=== PATIENT | male | born 1950 | race Caucasian/White ===

== ENCOUNTER → 2017-03-08 | Outpatient (REF) | payer MEDICARE, OTHER ==
[~2017-03-08] MED LIST: ACET65TA OR; ACTO45TA PO; ASCO25TA PO; ASPI81TA83 PO; CELE20TA PO; CLIN300C OR; CRES10TA32 PO; DOCU10CA PO; FERR32TA PO; FLON0.05; GABA-279 PO; GLIM1TAB PO; GLIM2TA PO; GLUC1000 OR; GLUC1000 PO; HYDR25TA6 OR; INSULANT SC; LEVA500T PO; LIPI20TA PO; LISI20TA5 OR; LISI20TA5 PO; Lotrel PO; META28.35 PO; MOME50SP; MULTIVIT PO; NABU500T PO; NEUR100C PO; NEXI40CA PO; NORV5TAB PO; OCEA0.654; OMEP20TA7 PO; PLAV75TA38 PO; ROXI1TAB2 PO; SENO8.6T2 PO; TYLE325T5 PO; VICT18IN SC; ZEST20TA4 PO; celebrex PO; exforge PO
[2017-03-08 11:56] LABS: MEAN CORPUSCULAR HEMOGLOBIN 28.6 pg (27.0-33.0); MEAN CORPUSCULAR HGB CONC 33.2 g/dl (32.0-36.5); MEAN CORPUSCULAR VOLUME 86.2 fl (80.0-96.0); RED CELL DISTRIBUTION WIDTH 13.6 % (11.5-14.5)
[2017-03-08 12:19] LABS: ALBUMIN 3.4 GM/DL (3.2-5.2); ALKALINE PHOSPHATASE 81 U/L (45-117); ALT/SGPT 27 U/L (12-78); ANION GAP 7 MEQ/L (8-16); AST/SGOT 20 U/L (15-37); BILIRUBIN,TOTAL 0.7 MG/DL (0.2-1.0); BLOOD UREA NITROGEN 27 MG/DL (7-18); CALCIUM LEVEL 8.5 MG/DL (8.8-10.2); CARBON DIOXIDE LEVEL 32 MEQ/L (21-32); CHLORIDE LEVEL 103 MEQ/L (98-107); CHOLESTEROL LEVEL 130 MG/DL (<200); CREATININE FOR GFR 1.13 MG/DL (0.70-1.30); GLOMERULAR FILTRATION RATE > 60.0 (>49); GLUCOSE, FASTING 142 MG/DL (80-110); POTASSIUM SERUM 4.2 MEQ/L (3.5-5.1); SODIUM LEVEL 142 MEQ/L (136-145); TOTAL PROTEIN 6.8 GM/DL (6.4-8.2); TRIGLYCERIDES LEVEL 105 MG/DL (<150)
== END ==
LOC: M SFHCPLAZ 08:49
PROVIDERS: ATTEND Internal Medicine
DX: E11.9 Type 2 diabetes mellitus without complications (principal); E78.00 Pure hypercholesterolemia, unspecified; Z79.899 Other long term (current) drug therapy

== ENCOUNTER 2017-05-08 02:54 | Emergency (ER) | payer MEDICARE, OTHER ==
[~2017-05-08] VITALS: Ht 177.8 cm; Wt 123.6 kg
[~2017-05-08 02:54] MED LIST changes: +PLAV1TAB2 PO; -PLAV75TA38 PO; -SENO8.6T2 PO; +SENO8.6T5 PO
[2017-05-08 03:00] VITALS: BP 159/77
[2017-05-08] MEDS ORDERED: NEXI40CA PO (03:16)
[2017-05-08] MEDS ORDERED: ZITHTAB PO (03:43)
[2017-05-08] MEDS ORDERED: AZITHROMYCIN 250 MG TAB PO ONE (03:45)
[2017-05-08] MEDS ORDERED: TETANUS/DIPHTHERIA TOX ADSORB ADULT 0.5ML SYR/VIAL (90714) IM ONE (04:00)
[2017-05-08] MEDS ORDERED: NORCO, ANEXSIA 5/325MG TABLET (HYDROcodone/ACETAMINOPHEN) PO ONE (04:15)
== END 2017-05-08 04:23 | disposition home or self-care (01) ==
LOC: M ED 02:54
DX: S80.812A Abrasion, left lower leg, initial encounter (principal); W10.9XXA Fall (on) (from) unspecified stairs and steps, initial encounter; Y92.018 Other place in single-family (private) house as the place of occurrence of the external cause; E11.9 Type 2 diabetes mellitus without complications; I10 Essential (primary) hypertension; K21.9 Gastro-esophageal reflux disease without esophagitis; Y99.9 Unspecified external cause status; Y93.9 Activity, unspecified; Z79.4 Long term (current) use of insulin; Z79.84 Long term (current) use of oral hypoglycemic drugs; Z79.899 Other long term (current) drug therapy; Z88.0 Allergy status to penicillin; Z91.048 Other nonmedicinal substance allergy status

== ENCOUNTER → 2017-06-02 | Outpatient (CLI) | payer MEDICARE, OTHER ==
[~2017-06-02] MED LIST changes: +ZITHTAB PO
--- NOTE | 2017-06-02 10:33 | REP ---
LEFT LOWER EXTREMITY DUPLEX DOPPLER ARTERIAL ULTRASOUND: Real-time ultrasound evaluation and duplex Doppler interrogation of the left lower extremity arterial system is performed. Scattered atherosclerotic plaquing is seen. Brachial: 100 Dorsal pedis: 100 Posterior tibial artery: No flow KENROY: 0.8 PEAK SYSTOLIC VELOCITY AND PHASICITY: Common femoral artery 96.9 cm/s Triphasic profunda 47.4 Biphasic SFA proximal 57.0 Triphasic SFA mid 78.7 Triphasic SFA distal 58.7 Triphasic popliteal 52.1 Triphasic anterior tibial artery proximal 79.4 Monophasic tibioperoneal trunk 36.4 Biphasic posterior tibial artery proximal 58.7 Monophasic posterior tibial artery distal No flow Anterior tibial artery distal 84.9 monophasic Distal posterior tibial artery appears occluded. Distal anterior tibial artery demonstrates a low resistance waveform suggesting a more proximal stenosis with reconstitution. Signed by Bello Shaver MD 06/03/2017 05:48 P
== END ==
LOC: M RAD 07:29
PROVIDERS: ATTEND Surgery Vascular Surgery
DX: R09.89 Other specified symptoms and signs involving the circulatory and respiratory systems (principal)

== ENCOUNTER → 2017-07-30 | Outpatient (REF) | payer MEDICARE, OTHER ==
[2017-07-30 12:22] LABS: ALBUMIN 3.5 GM/DL (3.2-5.2); ALBUMIN/GLOBULIN RATIO 1.06 (1.00-1.93); BILIRUBIN,TOTAL 0.8 MG/DL (0.2-1.0); CALCIUM LEVEL 8.5 MG/DL (8.8-10.2); CREATININE FOR GFR 1.68 MG/DL (0.70-1.30); GLOMERULAR FILTRATION RATE 43.3 (>49); POTASSIUM SERUM 3.8 MEQ/L (3.5-5.1); TOTAL PROTEIN 6.8 GM/DL (6.4-8.2)
== END ==
LOC: M SFHCPLAZ 09:19
PROVIDERS: ATTEND Internal Medicine
DX: E11.9 Type 2 diabetes mellitus without complications (principal)

== ENCOUNTER → 2018-02-28 | Outpatient (REF) | payer MEDICARE, OTHER ==
[2018-02-28 18:57] LABS: HEMATOCRIT 38.7 % (42.0-52.0); MEAN CORPUSCULAR HEMOGLOBIN 29.4 pg (27.0-33.0); MEAN CORPUSCULAR HGB CONC 33.6 g/dl (32.0-36.5); MEAN CORPUSCULAR VOLUME 87.6 fl (80.0-96.0); PLATELET COUNT, AUTOMATED 286 10^3/uL (150-450); RED BLOOD COUNT 4.42 10^6/uL (4.30-6.10); RED CELL DISTRIBUTION WIDTH 13.7 % (11.5-14.5); WHITE BLOOD COUNT 19.7 10^3/uL (4.0-10.0)
[2018-02-28 19:36] LABS: ALBUMIN 3.7 GM/DL (3.2-5.2); ALKALINE PHOSPHATASE 95 U/L (45-117); ALT/SGPT 42 U/L (12-78); ANION GAP 9 MEQ/L (8-16); AST/SGOT 25 U/L (7-37); BLOOD UREA NITROGEN 28 MG/DL (7-18); CALCIUM LEVEL 8.6 MG/DL (8.8-10.2); CARBON DIOXIDE LEVEL 29 MEQ/L (21-32); CHLORIDE LEVEL 102 MEQ/L (98-107); CHOLESTEROL LEVEL 185 MG/DL (<200); CHOLESTEROL RISK RATIO 4.404 (<5); CREATININE FOR GFR 1.68 MG/DL (0.70-1.30); GLOMERULAR FILTRATION RATE 43.2 (>42); GLUCOSE, FASTING 191 MG/DL (70-100); HDL CHOLESTEROL 42 MG/DL (>40); LDL CHOLESTEROL 115.4 MG/DL (<100); NON-HDL-C 143 MG/DL; POTASSIUM SERUM 4.5 MEQ/L (3.5-5.1); SODIUM LEVEL 140 MEQ/L (136-145); TOTAL PROTEIN 7.4 GM/DL (6.4-8.2); TRIGLYCERIDES LEVEL 138 MG/DL (<150)
[2018-02-28 19:47] LABS: ESTIMATED AVERAGE GLUCOSE 169 MG/DL (60-110); HEMOGLOBIN A1c 7.5 %
== END ==
LOC: M SFHCADAM 11:45
DX: D64.9 Anemia, unspecified (principal); E11.9 Type 2 diabetes mellitus without complications; E78.00 Pure hypercholesterolemia, unspecified; R94.6 Abnormal results of thyroid function studies
CPT/HCPCS: 84443

== ENCOUNTER → 2018-03-08 | Outpatient (CLI) | payer MEDICARE, OTHER | LOC: M RAD 08:04 | DX: I70.262 Atherosclerosis of native arteries of extremities with gangrene, left leg (principal) | CPT/HCPCS: 93923 ==

== ENCOUNTER → 2018-03-09 | Outpatient (REF) | payer MEDICARE, OTHER ==
[2018-03-09 12:54] LABS: BASO % 0.3 % (0.0-1.0); EOS # 0.3 10^3/uL (0.0-0.50); EOS % 2.9 % (0.0-3.0); HEMATOCRIT 38.7 % (42.0-52.0); HEMOGLOBIN 12.8 g/dl (13.5-17.5); IMMATURE GRANULOCYTE % 0.6 % (0-3.0); LYMPH # 2.2 10^3/uL (1.5-4.5); MEAN CORPUSCULAR HEMOGLOBIN 28.7 pg (27.0-33.0); MEAN CORPUSCULAR HGB CONC 33.1 g/dl (32.0-36.5); MEAN CORPUSCULAR VOLUME 86.8 fl (80.0-96.0); MONO # 0.7 10^3/uL (0.0-0.8); MONO % 7.7 % (0.0-5.0); NEUTROPHILS # 5.9 10^3/uL (1.8-7.7); NEUTROPHILS % 64.5 % (36.0-66.0); PLATELET COUNT, AUTOMATED 286 10^3/uL (150-450); RED BLOOD COUNT 4.46 10^6/uL (4.30-6.10); RED CELL DISTRIBUTION WIDTH 13.5 % (11.5-14.5); WHITE BLOOD COUNT 9.1 10^3/uL (4.0-10.0)
== END ==
LOC: M SFHCADAM 09:24
DX: D72.828 Other elevated white blood cell count (principal)
CPT/HCPCS: 85025

== ENCOUNTER → 2018-03-22 | Outpatient (CLI) | payer MEDICARE, OTHER | LOC: M RAD 13:11 | DX: R94.2 Abnormal results of pulmonary function studies (principal) | CPT/HCPCS: 71046 ==

== ENCOUNTER → 2018-03-23 | Outpatient (CLI) | payer MEDICARE, OTHER | LOC: M PLARAD 10:22 | DX: R91.1 Solitary pulmonary nodule (principal) | CPT/HCPCS: 78815 ==

== ENCOUNTER → 2018-05-25 | Outpatient (CLI) | payer MEDICARE, OTHER | LOC: M SLEEP 19:44 | DX: G47.33 Obstructive sleep apnea (adult) (pediatric) (principal) | CPT/HCPCS: 95811 ==

== ENCOUNTER → 2018-06-27 | Outpatient (REF) | payer MEDICARE, OTHER ==
[2018-06-27 13:46] LABS: BASO % 0.2 % (0.0-1.0); EOS # 0.3 10^3/uL (0.0-0.50); EOS % 3.2 % (0.0-3.0); HEMATOCRIT 37.5 % (42.0-52.0); HEMOGLOBIN 12.5 g/dl (13.5-17.5); IMMATURE GRANULOCYTE % 0.4 % (0-3.0); LYMPH # 2.1 10^3/uL (1.5-4.5); LYMPH % 23.1 % (24.0-44.0); MEAN CORPUSCULAR HEMOGLOBIN 29.8 pg (27.0-33.0); MEAN CORPUSCULAR HGB CONC 33.3 g/dl (32.0-36.5); MEAN CORPUSCULAR VOLUME 89.5 fl (80.0-96.0); MONO # 0.7 10^3/uL (0.0-0.8); MONO % 7.9 % (0.0-5.0); NEUTROPHILS # 5.9 10^3/uL (1.8-7.7); NEUTROPHILS % 65.2 % (36.0-66.0); PLATELET COUNT, AUTOMATED 257 10^3/uL (150-450); RED BLOOD COUNT 4.19 10^6/uL (4.30-6.10)
[2018-06-27 13:59] LABS: ALBUMIN 3.7 GM/DL (3.2-5.2); ALBUMIN/GLOBULIN RATIO 1.03 (1.00-1.93); ALKALINE PHOSPHATASE 72 U/L (45-117); ALT/SGPT 34 U/L (12-78); ANION GAP 10 MEQ/L (8-16); AST/SGOT 23 U/L (7-37); BILIRUBIN,TOTAL 0.7 MG/DL (0.2-1.0); BLOOD UREA NITROGEN 43 MG/DL (7-18); CALCIUM LEVEL 8.5 MG/DL (8.8-10.2); CARBON DIOXIDE LEVEL 26 MEQ/L (21-32); CHLORIDE LEVEL 105 MEQ/L (98-107); CHOLESTEROL LEVEL 126 MG/DL (<200); CHOLESTEROL RISK RATIO 3.073 (<5); CREATININE FOR GFR 1.58 MG/DL (0.70-1.30); GLOMERULAR FILTRATION RATE 46.4 (>42); GLUCOSE, FASTING 61 MG/DL (70-100); HDL CHOLESTEROL 41 MG/DL (>40); LDL CHOLESTEROL 63.6 MG/DL (<100); MAGNESIUM LEVEL 1.9 MG/DL (1.8-2.4); NON-HDL-C 85 MG/DL; POTASSIUM SERUM 4.3 MEQ/L (3.5-5.1); SODIUM LEVEL 141 MEQ/L (136-145); TOTAL PROTEIN 7.3 GM/DL (6.4-8.2); TRIGLYCERIDES LEVEL 107 MG/DL (<150)
[2018-06-27 14:39] LABS: CREATININE, URINE 41.5 MG/DL; MAU/CREAT RATIO 387.9 MCG/MG (0.0-30.0)
[2018-06-27 14:41] LABS: ESTIMATED AVERAGE GLUCOSE 180 MG/DL (60-110); HEMOGLOBIN A1c 7.9 %
== END ==
LOC: M SFHCPLAZ 11:43
DX: D72.828 Other elevated white blood cell count (principal); I10 Essential (primary) hypertension; E11.9 Type 2 diabetes mellitus without complications
CPT/HCPCS: 83735

== ENCOUNTER → 2018-08-19 | Outpatient (CLI) | payer MEDICARE, OTHER | LOC: M RAD 11:00 | DX: R91.1 Solitary pulmonary nodule (principal) | CPT/HCPCS: 71250 ==

== ENCOUNTER → 2018-08-24 | Outpatient (CLI) | payer MEDICARE, OTHER | LOC: M RAD 12:36 | DX: I70.202 Unspecified atherosclerosis of native arteries of extremities, left leg (principal); I74.3 Embolism and thrombosis of arteries of the lower extremities | CPT/HCPCS: 93926 ==

== ENCOUNTER → 2019-03-07 | Outpatient (CLI) | payer MEDICARE, OTHER ==
[~2019-03-07] MED LIST changes: -ASCO25TA PO; +CRES10TA PO; -CRES10TA32 PO; +GABA-1171 PO; -GABA-279 PO; -GLIM2TA PO; +GLIM2TAB29 PO; +VITA1TAB23 PO
--- NOTE | 2019-03-07 20:23 | REP ---
LEFT LOWER EXTREMITY DUPLEX DOPPLER ARTERIAL ULTRASOUND: Real-time ultrasound evaluation and duplex Doppler interrogation of the left lower extremity arterial system is performed. Severe atherosclerotic plaquing is seen throughout the arteries of the left lower extremity. Areas of stenoses are seen in the distal anterior and distal posterior tibial arteries. Triphasic waveforms are seen through the tibial peroneal trunk and into the proximal posterior tibial artery, with biphasic waveform in the proximal anterior tibial artery. There are monophasic waveforms in the distal anterior and posterior tibial arteries. LEFT Peak systolic velocity Common femoral artery 68.8 cm/s Profunda 52.7 cm/s Proximal SFA 69.2 cm/s Mid SFA 81.1 cm/s Distal SFA 54.5 cm/s Popliteal 32.5 cm/s Proximal ALIRIO 26.5 cm/s Tibial peroneal trunk 33.8 cm/s Proximal DIRECTOR INTEGRATED 59.5 cm/s Distal DIRECTOR INTEGRATED 8.9 cm/s Distal ALIRIO 95.4 cm/s IMPRESSION: Diffuse severe atherosclerotic plaquing with severe stenosis of the distal anterior and posterior tibial arteries. Electronically Signed by Bello Shaver MD 03/08/2019 04:52 P
== END ==
LOC: M RAD 09:31
PROVIDERS: ATTEND Surgery Vascular Surgery
DX: I70.212 Atherosclerosis of native arteries of extremities with intermittent claudication, left leg (principal)

== ENCOUNTER → 2019-03-13 | Outpatient (REF) | payer MEDICARE, OTHER ==
[2019-03-13 12:06] LABS: HEMATOCRIT 37.3 % (42.0-52.0); HEMOGLOBIN 12.8 g/dl (13.5-17.5); MEAN CORPUSCULAR HGB CONC 34.3 g/dl (32.0-36.5); MEAN CORPUSCULAR VOLUME 87.6 fl (80.0-96.0); PLATELET COUNT, AUTOMATED 251 10^3/uL (150-450); RED BLOOD COUNT 4.26 10^6/uL (4.30-6.10)
[2019-03-13 12:28] LABS: HEMOGLOBIN A1c 8.5 %
[2019-03-13 12:47] LABS: ALBUMIN 3.5 GM/DL (3.2-5.2); BILIRUBIN,TOTAL 1.6 MG/DL (0.2-1.0); CALCIUM LEVEL 8.5 MG/DL (8.8-10.2); CHOLESTEROL RISK RATIO 2.935 (<5); CREATININE FOR GFR 1.37 MG/DL (0.70-1.30); GLOMERULAR FILTRATION RATE 54.5 (>42); MAGNESIUM LEVEL 1.5 MG/DL (1.8-2.4); POTASSIUM SERUM 3.9 MEQ/L (3.5-5.1); PTH INTACT 102.9 PG/ML (18.5-88.0); TOTAL PROTEIN 7.3 GM/DL (6.4-8.2)
== END ==
LOC: M SFHCPLAZ 10:05
PROVIDERS: ATTEND Internal Medicine
DX: D64.9 Anemia, unspecified (principal); I12.9 Hypertensive chronic kidney disease with stage 1 through stage 4 chronic kidney disease, or unspecified chronic kidney disease; E11.9 Type 2 diabetes mellitus without complications; E78.00 Pure hypercholesterolemia, unspecified; N18.3 Chronic kidney disease, stage 3 (moderate)

== ENCOUNTER → 2019-07-18 | Outpatient (CLI) | payer MEDICARE, OTHER ==
--- NOTE | 2019-07-18 11:43 | REP ---
CT of the chest without contrast Clinical indication: Solitary pulmonary nodule. Comparison: CT chest of 08/19/2018. Technique: Axial CT of the chest was performed from the thoracic inlet to the upper abdomen. No intravenous contrast was administered. Coronal and sagittal reformatted images as well as axial lung reformatted and coronal MIP images were provided. Findings: The upper airway is patent. The 9 mm right apical nodule is unchanged (image 14). There is no new suspicious pulmonary nodule. There is no pleural effusion. There is atherosclerotic calcification of the thoracic aorta and coronary arteries. The heart size is normal. No pericardial effusion. There is is similar appearance of nonenlarged mediastinal lymph nodes which measure up to 9 mm in short axis dimension. There is no axillary lymphadenopathy. The partially imaged thyroid is enlarged but unchanged. Within the upper abdomen, note is made of prior cholecystectomy. ACDF hardware is partially imaged. No suspicious focal osseous lesion. Impression: Unchanged 9 mm right apical nodule. No new suspicious pulmonary nodule. Electronically Signed by Shahid Yeboah MD 07/18/2019 11:35 A
== END ==
LOC: M RAD 10:24
PROVIDERS: ATTEND Internal Medicine Pulmonary Disease
DX: R91.1 Solitary pulmonary nodule (principal)

== ENCOUNTER → 2019-08-03 | Outpatient (REF) | payer MEDICARE, OTHER ==
[2019-08-03 13:43] LABS: HEMATOCRIT 39.2 % (42.0-52.0); MEAN CORPUSCULAR HEMOGLOBIN 29.3 pg (27.0-33.0); MEAN CORPUSCULAR HGB CONC 33.2 g/dl (32.0-36.5); MEAN CORPUSCULAR VOLUME 88.3 fl (80.0-96.0); PLATELET COUNT, AUTOMATED 293 10^3/uL (150-450); RED BLOOD COUNT 4.44 10^6/uL (4.30-6.10); WHITE BLOOD COUNT 8.7 10^3/uL (4.0-10.0)
[2019-08-03 14:19] LABS: ALBUMIN 3.6 GM/DL (3.2-5.2); ALT/SGPT 21 U/L (12-78); BILIRUBIN,TOTAL 1.4 MG/DL (0.2-1.0); BLOOD UREA NITROGEN 28 MG/DL (7-18); CARBON DIOXIDE LEVEL 30 MEQ/L (21-32); CHLORIDE LEVEL 104 MEQ/L (98-107); CREATININE FOR GFR 1.25 MG/DL (0.70-1.30); GLOMERULAR FILTRATION RATE > 60.0 (>42); GLUCOSE, FASTING 101 MG/DL (70-100); MAGNESIUM LEVEL 1.5 MG/DL (1.8-2.4); POTASSIUM SERUM 4.3 MEQ/L (3.5-5.1); PTH INTACT 134.2 PG/ML (18.5-88.0); SODIUM LEVEL 140 MEQ/L (136-145)
[2019-08-03 14:45] LABS: CREATININE, URINE 34.2 MG/DL; MAU/CREAT RATIO 1552.6 MCG/MG (0.0-30.0)
== END ==
LOC: M SFHCPLAZ 09:58
PROVIDERS: ATTEND Internal Medicine
DX: D64.9 Anemia, unspecified (principal); I12.9 Hypertensive chronic kidney disease with stage 1 through stage 4 chronic kidney disease, or unspecified chronic kidney disease; E11.9 Type 2 diabetes mellitus without complications; N18.3 Chronic kidney disease, stage 3 (moderate); R94.6 Abnormal results of thyroid function studies

== ENCOUNTER 2020-03-28 08:56 | Emergency (ER) | payer MEDICARE, OTHER ==
[~2020-03-28] VITALS: Ht 180.3 cm; Wt 119.1 kg
[2020-03-28] MEDS ORDERED: LANTINJ4 (09:05)
[2020-03-28] MEDS ORDERED: VICT18IN2 (09:05)
[2020-03-28] MEDS ORDERED: BACL1TAB8 (09:05)
[2020-03-28 09:41] LABS: HEMATOCRIT 37.2 % (42.0-52.0); HEMOGLOBIN 12.5 g/dl (13.5-17.5); MEAN CORPUSCULAR HEMOGLOBIN 30.1 pg (27.0-33.0); MEAN CORPUSCULAR HGB CONC 33.6 g/dl (32.0-36.5); MEAN CORPUSCULAR VOLUME 89.6 fl (80.0-96.0); PLATELET COUNT, AUTOMATED 233 10^3/uL (150-450); RED BLOOD COUNT 4.15 10^6/uL (4.30-6.10); WHITE BLOOD COUNT 8.5 10^3/uL (4.0-10.0)
[2020-03-28 09:58] LABS: ERYTHROCYTE SEDIMENTATION RATE 51 mm/hr (0-20)
--- NOTE | 2020-03-28 10:16 | REP ---
Left hand series: Four views. History: Swelling and tenderness after a fall. Findings: Four views of the left hand demonstrate fairly extensive arterial vascular atherosclerotic calcification into the digital arteries. There is osteoarthritic spurring at the IP joint of the thumb, the DIP joint of the index finger, and at the DIP joint of the small finger. There is minimal degenerative widening of the navicular lunate interval. 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 No fracture or subluxation is seen. Impression: No fracture noted. Osteoarthritic changes. 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 Electronically Signed by Jagdeep Mcnally MD 03/28/2020 11:25 A
[2020-03-28 10:23] VITALS: BP 124/67
[2020-03-28] MEDS ORDERED: DOXY-350 PO (10:25)
--- NOTE | 2020-03-28 10:26 | REP ---
LEFT WRIST SERIES: Four views. HISTORY: Swelling and tenderness after a fall. FINDINGS: Extensive vascular calcification is noted. Incidental lunotriquetral carpal coalition is seen. There is minimal degenerative widening of the navicular lunate interval. There is mild osteoarthritis at the navicular multangular articulation and at the 1st metacarpocarpal articulation. There is some dorsal carpal swelling. No fractures seen. IMPRESSION: No fracture is noted. Lunotriquetral carpal coalition. Extensive vascular calcification. Osteoarthritic changes. Electronically Signed by Jagdeep Mcnally MD 03/28/2020 11:25 A
== END 2020-03-28 10:45 | disposition home or self-care (01) ==
LOC: M ED 08:56
DX: S80.221A Blister (nonthermal), right knee, initial encounter (principal); L03.114 Cellulitis of left upper limb; W01.198A Fall on same level from slipping, tripping and stumbling with subsequent striking against other object, initial encounter; Y92.093 Driveway of other non-institutional residence as the place of occurrence of the external cause; Z89.511 Acquired absence of right leg below knee; E11.9 Type 2 diabetes mellitus without complications; I10 Essential (primary) hypertension; E78.5 Hyperlipidemia, unspecified; K21.9 Gastro-esophageal reflux disease without esophagitis; F41.9 Anxiety disorder, unspecified; F32.9 Major depressive disorder, single episode, unspecified; Z88.0 Allergy status to penicillin; Z91.048 Other nonmedicinal substance allergy status; Z79.899 Other long term (current) drug therapy; Z79.4 Long term (current) use of insulin; Z79.82 Long term (current) use of aspirin; Z79.02 Long term (current) use of antithrombotics/antiplatelets

== ENCOUNTER → 2020-04-09 | Outpatient (REF) | payer MEDICARE, OTHER ==
[~2020-04-09] MED LIST changes: +BACL1TAB8; +DOXY-350 PO; +LANTINJ4; +VICT18IN2
[2020-04-09 16:14] LABS: HEMATOCRIT 39.3 % (42.0-52.0); HEMOGLOBIN 13.1 g/dl (13.5-17.5); MEAN CORPUSCULAR HEMOGLOBIN 29.9 pg (27.0-33.0); MEAN CORPUSCULAR HGB CONC 33.3 g/dl (32.0-36.5); MEAN CORPUSCULAR VOLUME 89.7 fl (80.0-96.0); PLATELET COUNT, AUTOMATED 280 10^3/uL (150-450); RED BLOOD COUNT 4.38 10^6/uL (4.30-6.10); WHITE BLOOD COUNT 8.2 10^3/uL (4.0-10.0)
[2020-04-09 16:39] LABS: HEMOGLOBIN A1c 8.7 %
[2020-04-09 16:53] LABS: ALBUMIN 3.7 GM/DL (3.2-5.2); BILIRUBIN,TOTAL 1.5 MG/DL (0.2-1.0); CALCIUM LEVEL 8.8 MG/DL (8.8-10.2); CHOLESTEROL RISK RATIO 4.378 (<5); CREATININE FOR GFR 1.36 MG/DL (0.70-1.30); GLOMERULAR FILTRATION RATE 54.8 (>42); MAGNESIUM LEVEL 1.4 MG/DL (1.8-2.4); POTASSIUM SERUM 4.9 MEQ/L (3.5-5.1); THYROID STIMULATING HORMONE 4.65 uIU/ML (0.358-3.740); TOTAL PROTEIN 7.4 GM/DL (6.4-8.2)
[2020-04-09 16:58] LABS: PTH INTACT 134.4 PG/ML (18.5-88.0)
[2020-04-09 17:23] LABS: CREATININE, URINE 45.9 MG/DL; MAU/CREAT RATIO 1882.3 MCG/MG (0.0-30.0)
== END ==
LOC: M SFHCPLAZ 14:13
PROVIDERS: ATTEND Internal Medicine
DX: D64.9 Anemia, unspecified (principal); I12.9 Hypertensive chronic kidney disease with stage 1 through stage 4 chronic kidney disease, or unspecified chronic kidney disease; E11.9 Type 2 diabetes mellitus without complications; E78.00 Pure hypercholesterolemia, unspecified; N18.3 Chronic kidney disease, stage 3 (moderate); R94.6 Abnormal results of thyroid function studies
CPT/HCPCS: 36415; 80053; 80061; 82043; 83036; 83735; 83970; 84443; 85027; G0463

== ENCOUNTER → 2020-04-29 | Outpatient (CLI) | payer MEDICARE, OTHER ==
--- NOTE | 2020-04-30 02:51 | REP ---
REASON: Claudication. LEFT SIDE ONLY: Left ankle-brachial index not obtainable. ARTERY PEAK SYSTOLIC VELOCITY PHASICITY HOSIERY PAIRER 83.6 cm/s Triphasic Profunda 64.2 cm/s Triphasic SFA proximal 69.9 cm/s Triphasic SFA mid 78.2 cm/s Triphasic SFA distal 49.2 cm/s Triphasic Popliteal 27.7 cm/s Triphasic ALIRIO proximal 219.4 cm/s Triphasic Tibioperoneal trunk 49.5 cm/s Triphasic BUSINESS RELATIONS MANAGER proximal Occluded BUSINESS RELATIONS MANAGER distal 25.0 cm/s Monophasic ALIRIO distal 23.1 cm/s Monophasic Severe plaque formation is seen in the proximal anterior tibial artery. No flow is seen in the proximal BUSINESS RELATIONS MANAGER. Areas of the distal BUSINESS RELATIONS MANAGER appear possibly revascularized. The anterior tibial artery was seen to be heavily calcified at the level of the ankle. Electronically Signed by Wayne Christy DO 04/30/2020 10:23 A
== END ==
LOC: M RAD 15:01
PROVIDERS: ATTEND Physician Assistant
DX: I70.212 Atherosclerosis of native arteries of extremities with intermittent claudication, left leg (principal)

== ENCOUNTER 2020-05-15 11:02 | Inpatient (IN) | payer MEDICARE, OTHER ==
[~2020-05-15] VITALS: Ht 180.3 cm; Wt 114.0 kg
[~2020-05-15 11:02] MED LIST changes: -BACL1TAB8; +BACL1TAB8 PO
[2020-05-15 11:51] LABS: BASO % 0.3 % (0.0-1.0); EOS # 0.2 10^3/uL (0.0-0.5); EOS % 2.4 % (0.0-3.0); HEMATOCRIT 36.1 % (42.0-52.0); HEMOGLOBIN 11.9 g/dl (13.5-17.5); LYMPH # 1.6 10^3/uL (1.5-5.0); LYMPH % 18.1 % (24.0-44.0); MEAN CORPUSCULAR HEMOGLOBIN 30.3 pg (27.0-33.0); MEAN CORPUSCULAR VOLUME 91.9 fl (80.0-96.0); MONO # 0.6 10^3/uL (0.0-0.8); MONO % 6.4 % (0.0-5.0); NEUTROPHILS # 6.3 10^3/uL (1.5-8.5); NEUTROPHILS % 72.5 % (36.0-66.0); PLATELET COUNT, AUTOMATED 286 10^3/uL (150-450); RED BLOOD COUNT 3.93 10^6/uL (4.30-6.10); WHITE BLOOD COUNT 8.7 10^3/uL (4.0-10.0)
[2020-05-15] MEDS ORDERED: NS 1,000 ML IV ONE ×2 (12:30→17:00)
[2020-05-15] MEDS ORDERED: INSULANT SC (13:28)
[2020-05-15] MEDS ORDERED: AMLO10TA5 PO (13:28)
[2020-05-15] MEDS ORDERED: CELE20TA PO (13:28)
[2020-05-15] MEDS ORDERED: HYDR12.55 PO (13:28)
[2020-05-15] MEDS ORDERED: FURO40TA2 PO (13:28)
[2020-05-15] MEDS ORDERED: GABA-843 PO ×2 (13:28)
[2020-05-15] MEDS ORDERED: LOSA100T50 PO (13:28)
[2020-05-15] MEDS ORDERED: ACET-683 PO (13:28)
[2020-05-15] MEDS ORDERED: ASPI81TA26 PO (13:28)
[2020-05-15] MEDS ORDERED: GLIM4TAB5 PO (13:28)
[2020-05-15] MEDS ORDERED: XARE20TA PO (13:28)
[2020-05-15] MEDS ORDERED: METF750T36 PO ×2 (13:28)
--- NOTE | 2020-05-15 14:49 | REP ---
REASON: Right-sided tenderness. PRIORS: None. A few subsegmental atelectatic changes are seen in the right lung base. There is bilateral perirenal stranding, left greater than right. There is a 4 mm size nonobstructing right nephrolith. There is no right-sided hydronephrosis or hydroureter. There is slight left hydronephrosis and hydroureter. The left posterior urinary bladder wall is irregular and appear asymmetrically thickened at the level of the trigone. There is a 2 mm sized nonobstructing left nephrolith. Limited evaluation of the solid intra-abdominal organs show no gross abnormalities. Limited evaluation of the pancreas and adrenal glands show no gross abnormalities. Limited evaluation of the abdominal aorta and para-aortic regions show no gross abnormalities. There is no free fluid or free air in the abdomen or pelvis. Bone window technique through the examination shows degenerative and postoperative changes. Limited evaluation of the bowel loops and their mesenteries show no gross abnormalities. IMPRESSION: 1. Mild left-sided hydronephrosis and hydroureter as described above and possibly secondary to a urinary bladder mass as described above. Urological consultation is suggested. 2. Bilateral nonobstructing nephroliths. 3. Other findings as described above. Electronically Signed by Wayne Christy DO 05/15/2020 05:21 P
[2020-05-15] MEDS ORDERED: FLUTICASONE PROP 0.05% NASAL SPRAY 16 GM (FLONASE) PRN (17:00)
[2020-05-15] MEDS ORDERED: BACLOFEN 10 MG TAB PO PRN (17:00)
[2020-05-15] MEDS ORDERED: GLUCAGON INJ 1MG VIAL SC PRN (17:00)
[2020-05-15] MEDS ORDERED: DEXTROSE 50% 50 ML SYRINGE IV PRN (17:00)
[2020-05-15] MEDS ORDERED: GLUCOSE 4GM CHEW TABLET PO PRN (17:00)
[2020-05-15] MEDS ORDERED: ACETAMINOPHEN 500 MG TAB PO PRN (17:00)
[2020-05-15] MEDS: HumaLOG INSULIN (NovoLOG) PER UNIT SC SCH (17:56)
[2020-05-15] MEDS ORDERED: cefTRIAXone SOD 2 GM in D5W MINI-BAG PLUS 50 ML IV SCH (18:00)
--- NOTE | 2020-05-15 18:23 | HPE ---
DATE OF ADMISSION: 05/15/2020 CHIEF COMPLAINT: Dark urine. HISTORY OF PRESENT ILLNESS: This is a 70-year-old male with history of paralyzed right hemidiaphragm, cervical spine surgery, diabetes with retinopathy status post photocoagulation, obstructive sleep apnea on chronic continuous positive airway pressure (CPAP), hypertension, hyperlipidemia, bilateral carpal tunnel, testalgia, osteoarthritis, restless legs, abnormal thyroid-stimulating hormone (TSH), peripheral vascular disease status post [id number] cross femoral bypass and angioplasty of right leg with right [id number] amputation, presents to the emergency room with acute onset of dark urine. The patient had hematuria yesterday afternoon in the late afternoon twice. He showed his . His said "we should have that looked at." The patient denies any dizziness, lightheadedness, shortness of breath, chest pain, pressure or tightness, palpitations. No fever, chills, nausea, vomiting, diarrhea, or abdominal pain. The patient said he fell about two weeks ago and had some pain on his right side. He thought it would go away. It is worse in the morning when he gets up from the chair. No nonsteroidal antiinflammatory drug (NSAID) use for this pain and he has just pushed through the pain without taking medication. He denies any dysuria, urgency, frequency. He usually urinates 3-4 times a day and then once at night. The patient presented to the emergency room (ER) for further evaluation and was found to have some anemia with hemoglobin of [address] abdomen and pelvis showed a large bladder mass with mild left-sided hydronephrosis. Urology consultation recommended. Hospitalist was called to admit. The patient otherwise denies any changes in weight, appetite, depression, insomnia, dysuria, urgency, frequency, polyphagia, or polydipsia. Denies any nausea, vomiting, diarrhea, upper or lower extremity weakness. All other systems negative. PAST MEDICAL HISTORY: 1. Diabetes. 2. Hypertension. 3. Hypercholesterolemia. 4. 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 5. Retinopathy with photocoagulation. 6. Obstructive sleep apnea (CARLOS), on CPAP. 7. Testalgia. 8. Bilateral carpal tunnel. 9. Osteoarthritis. 10. Allergic rhinitis. 11. Abnormal thyroid-stimulating hormone (TSH). 12. Restless leg. 13. Anemia. 14. Peripheral vascular disease. 15. Right below-knee amputation (BKA). 16. Dyspnea on exertion. 17. Abnormal CT. ALLERGIES: PENICILLIN causing rash, CODEINE nausea and vomiting, TAPE ADHESIVE rash. PAST SURGICAL HISTORY: 1. Right below-knee amputation (BKA) 2014. 2. Cholecystectomy 1993. 3. Circumcision 1998. 4. Arthroscopy, left knee January 2000. 5. Lumbar laminectomy May 2013. 6. Cervical spine surgery with right-sided hemidiaphragm paralysis 2013. 7. Polypectomy 2013. 8. Hamu-ed-[id number] cross femoral bypass and angioplasty of right leg 2014 at [facility] in [place]. 9. Right carpal tunnel release 2017. 10. Colonoscopy with polypectomy 2019. HOME MEDICATIONS: - Lasix 40 daily - glimepiride 4 daily - hydrochlorothiazide 12.5 daily - losartan 100 daily - metformin 750 at bedtime - Victoza 1.8 mg subcutaneous daily - acetaminophen 1 gram every eight hours as needed - Norvasc 10 daily - aspirin 81 daily - baclofen 10 three times a day as needed - Celexa 20 daily - Nexium 40 daily - gabapentin 600 every morning, 900 every evening - Lantus insulin 30 subcutaneous at bedtime - metformin 1.5 grams every morning - Nasonex as needed - Xarelto 20 daily FAMILY HISTORY: Father with heart disease. Mother alive with diabetes. Siblings: Diabetes. Father of cerebrovascular accident (CVA) at the age of 76. Brother of liver disease age 74. Three sisters are alive and well. SOCIAL HISTORY: Nonsmoker. One beer a year. No recreational drug use. 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 with children. Lives at home with his . Full code. Healthcare proxy is Deisi, his , . Daughter is also a healthcare proxy, Sasha. REVIEW OF SYSTEMS: Per history of present illness (HPI), 12-point system otherwise negative. PHYSICAL EXAMINATION: Temperature 97.5, pulse 80, respiratory rate 22, blood pressure 140/77, 96% on room air. GENERAL: Awake, alert, oriented to person, place and time, answering questions appropriately. No pallor, icterus, or jaundice. Pupils round and reactive. Extraocular muscles are intact. Normocephalic, atraumatic. Dry mucous membranes. No jugular venous distention (JVD) or thyromegaly. Lungs are clear to auscultation. No wheezing, rales, or rhonchi. HEART: S1, S2, sinus rhythm. No murmurs, rubs or gallops. ABDOMEN: Obese, soft, nontender, nondistended. Some suprapubic tenderness. No costovertebral angle (CVA) tenderness. Right below-knee amputation (BKA). Left lower extremity 2+ pitting edema, chronic venous stasis changes. LABORATORY DATA: White count 8.7, hemoglobin 11, hematocrit 36, platelet count 286. Sodium 142, potassium 4.6, chloride 106, bicarbonate 23, BUN 36, creatinine 2, glucose of 159. Urinalysis: 2+ protein, 1+ glucose, cloudy appearance, 3+ blood, too numerous to count WBC and RBC, negative nitrite. CT abdomen and pelvis: Mild left-sided hydronephrosis, hydroureter, possibly secondary to urinary bladder mass, irregular urinary bladder high thickened at the level of the trigone with a 2 mm size nonobstructing left nephrolith. ASSESSMENT AND PLAN: This is a 70-year-old male with history of peripheral vascular disease on aspirin and Xarelto who presents with dark maroon-colored urine and hematuria, found to have a left-sided hydronephrosis, creatinine of 2 with hydroureter, with history of hypertension, hypercholesterolemia, paralyzed right hemidiaphragm, retinopathy, testalgia, osteoarthritis, colonic polyps. CURRENT ISSUES: 1. Gross hematuria with acute blood loss, currently non-anemic, was slight anemic. We will monitor hemoglobin and hematocrit and transfuse as needed. Urologist has been consulted to further evaluate the bladder mass noted on CT abdomen and pelvis. 2. Large bladder mass. We are uncertain whether this is a blood clot in the setting of a recent fall and chronic aspirin and Xarelto versus a bladder tumor for which a biopsy would be warranted. Urologist has been consulted to assess and further recommend management. At this time, aspirin and Xarelto have been held. He is currently losing blood. Hemoglobin and hematocrit will be monitored, type and screened. No acute indication for red blood cell (RBD) transfusion as the patient is currently asymptomatic. 3. Hypertension, currently on Norvasc. 4. Abnormal urinalysis, on IV ceftriaxone. Urine culture is pending. Tylenol for pain or fever. 5. Chronic back pain, on baclofen. 6. Depression, on Celexa. 7. Chronic diabetic neuropathy, on Neurontin. 8. Diabetes, on sliding scale and Levemir insulin, consistent-carbohydrate diet with fingersticks before meals and at bedtime. 9. Code status is a full code. MTDD
--- NOTE | 2020-05-15 19:37 | SMCUROLCON ---
Urology Consultation General Date of Consultation 05/15/20 Reason For Consultation This patient is seen for Bladder Mass. History of Present Illness The patient is a 70-year-old white male with no past medical history for hematuria or other voiding problems. He presented to the emergency room today because of acute onset of urine. Beginning yesterday afternoon or evening. When this persisted. He presented to the emergency room today for evaluation. Subsequent studies showed that he on his CAT scan. He had a bladder mass on the left side of the bladder. Uncertain as to whether this is a clot or bladder tumor. He does not have a history of smoking and has not had any hematuria in the past. He admits that he does not drink large amounts of fluids. He is on blood thinners, has no urgency, frequency or dysuria and usually has nocturia 1. Because of the hematuria, urology consult was called. His blood loss seems to have been severe enough as to drop his hematocrit, which is now 36.1. Past Medical History Medical History 1. Diabetes. 2. Hypertension. 3. Hypercholesterolemia. 4. 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 5. Diabetic retinopathy. 6. Obstructive sleep apnea. 7. Testalgia. 8. Bilateral carpal tunnel 9. Osteoarthritis. 10. Allergic rhinitis. 11. Abnormal thyroid stimulating hormone 12. Restless leg syndrome. 13. Anemia. 14. Peripheral vascular disease. 15. Right below-knee amputation. 16. Dyspareunia on exertion. 17. Area abnormal CT of a bladder mass. 18. Hematuria Surgical Hstory 1. Right below-knee amputation 2014. 2. Cholecystectomy, 1993. 3. Circumcision 1998. 4. Arthroscopy left knee. 2004. 5. Lumbar laminectomy 2012. 6. cervical spine surgery in 2013. 7. Polypectomy 2013. 8. Left to right cross femoral bypass 2014 9. Right carpal tunnel release 2017 10. Colonoscopy with polypectomy 2019 Social History Social History * Smoker: non-smoker Alcohol: other (1. Beer Daily) Medications Current Medications Current Medications Medications (Trade) Dose Ordered Sig/Vijaya Route PRN Reason Start Time Stop Time Status Last Admin Dose Admin Acetaminophen (Tylenol Tab) 1,000 mg Q8H PRN PO PAIN / FEVER 05/15/20 17:00 Amlodipine Besylate (Norvasc) 10 mg DAILY PO 05/16/20 09:00 Aspirin (Ecotrin) 81 mg DAILY PO 05/16/20 09:00 05/15/20 17:43 DC Baclofen (Lioresal) 10 mg TID PRN PO MUSCLE SPASMS 05/15/20 17:00 Ceftriaxone Sodium 2 gm/ Dextrose 50 ml @ 100 mls/hr Q24H IV 05/15/20 18:00 Citalopram Hydrobromide (CeleXA) 20 mg DAILY PO 05/16/20 09:00 Dextrose (Dextrose 50%) 25 ml ASDIRECTED PRN IV SEE LABEL COMMENTS 05/15/20 17:00 Fluticasone Propionate (Flonase 0.05% Nasal Williams) 2 spray DAILY PRN NA CONGESTION AND ALLERGIES 05/15/20 17:00 Gabapentin (Neurontin) 600 mg DAILY PO 05/16/20 09:00 Gabapentin (Neurontin) 900 mg QHS PO 05/15/20 21:00 Glucagon (Glucagon) 1 mg ASDIRECTED PRN SC SEE LABEL COMMENTS 05/15/20 17:00 Glucose (Glucose) 16 GM ASDIRECTED PRN PO SEE LABEL COMMENTS 05/15/20 17:00 Home Med (Med Rec Complete!) ASDIRECTED XX 05/15/20 13:45 05/15/20 13:39 DC Insulin Detemir (Levemir Insulin) 30 units QHS SC 05/15/20 21:00 Insulin Human Lispro (HumaLOG INSULIN) SEE PROTOCOL TABLE AC SC 05/15/20 17:30 05/15/20 17:56 Insulin Human Lispro (HumaLOG INSULIN) SEE PROTOCOL TABLE QHS SC 05/15/20 21:00 Metformin HCl (Glucophage Xr) 1,500 mg QAM PO 05/16/20 09:00 05/15/20 17:08 DC Pantoprazole Sodium (Protonix) 40 mg DAILY PO 05/16/20 09:00 Rivaroxaban (Xarelto) 20 mg DAILY@1800 PO 05/16/20 18:00 05/15/20 17:43 DC Allergies Allergies: Coded Allergies: Penicillins (Verified Allergy, Unknown, 03/28/20) TAPE (Verified Allergy, Unknown, PLASTIC TAPE, 03/28/20) Review of Systems General: Reports: Normal Appetite; Denies: Fatigue, Malaise Constitutional: Denies: Fever, Chills, Sweats, Weakness, Malaise Eyes: Denies: Pain, Vision change ENT: Denies: Head Aches, Sore Throat, Epistaxis Skin: Denies: Rash, Lesions, Breakdown, Nail Changes Genitourinary: Denies: Dysuria, Frequency, Incontinence, Hematuria Hematologic: Denies: Bruising, Bleeding Excessively Physical Examination General Exam: Alert, No Acute Distress EYE EXAM: PERRLA, Conjunctiva & lids normal, EOMI; No: Sclera icteric ENT EXAM: Atraumatic, Mucous membr. moist/pink, Pharynx Normal Neck Exam: Supple; No: JVD, thyromegaly Abdomen Exam: Normal Bowel Sounds, Soft; No: Tenderness, Hepatospenomegaly Male Exam: Normal Genital Exam Male Exam Prostate was not examined as he has yearly prostate exams with his PCP Extremity Exam: Other (right below-knee amputation) Vital Signs/I&O Vital Signs Date Time Temp Pulse Resp B/P (MAP) Pulse Ox O2 Delivery O2 Flow Rate FiO2 05/15/20 14:02 98.1 73 17 167/88 (114) 94 Room Air Laboratory Data 24H Labs Laboratory Tests 2 05/15/20 11:26: Immature Granulocyte % (Auto) 0.3, Neutrophils (%) (Auto) 72.5H, Lymphocytes (%) (Auto) 18.1L, Monocytes (%) (Auto) 6.4H, Eosinophils (%) (Auto) 2.4, Basophils (%) (Auto) 0.3, Neutrophils # (Auto) 6.3, Lymphocytes # (Auto) 1.6, Monocytes # (Auto) 0.6, Eosinophils # (Auto) 0.2, Basophils # (Auto) 0.0, Nucleated Red Blood Cells % (auto) 0.0, Urine Color REDH, Urine Appearance CLOUDYH, Urine pH 6.0, Urine Specific [place] 1.008, Urine Protein 2+H, Urine Glucose (UA) 1+H, Urine Ketones NEGATIVE, Urine Blood 3+H, Urine Nitrite NEGATIVE, Urine Bilirubin NEGATIVE, Urine Urobilinogen 0.2, Urine Leukocyte Esterase NEGATIVE, Urine WBC (Auto) TNTCH, Urine RBC (Auto) TNTCH, Urine Hyaline Casts (Auto) 0, Urine Bacteria (Auto) NEGATIVE, Urine Squamous Epithelial Cells 0, Urine Sperm (Auto) 05/15/20 11:29: Total Creatine Kinase 119 05/15/20 11:31: POC Glucose (Misc Panel) 159H, POC Sodium (Misc Panel) 142, POC Potassium (Misc Panel) 4.6, POC Chloride (Misc Panel) 106, POC Total CO2 (Misc Panel) 23.0, POC Blood Urea Nitrogen (Misc Panel 36H, POC Ionized Calcium (Misc Panel) 4.8, POC Creatinine (Misc Panel) 2.0H, POC Hematocrit (Misc Panel) 36.0L 05/15/20 17:45: Bedside Glucose (Misc Panel) 136H CBC/BMP Laboratory Tests 05/15/20 11:26 Microbiology Microbiology 05/15/20 Urine Culture, Received Pending Assessment Reason for the dark colored urine hematuria is uncertain at this time. The bladder mass will need to be evaluated with cystoscopic evaluation. Hematuria may be secondary to his diabetes and anticoagulant. Plan Plan at the current time is to hydrate and observe urine color. As this improves his cystoscopic evaluation and be put off to the outpatient setting. I will continue to follow with you and check in the morning to see if his urine has improved. Time Spent on Consult: Time Spent / Consult (Minutes): 70 KADEN FLORES MD May 15, 2020 19:37
[2020-05-15] MEDS ORDERED: LEVEMIR (INSULIN DETEMIR) 1 UNITS/0.01ML SC SCH (21:00)
[2020-05-15] MEDS ORDERED: HumaLOG INSULIN (NovoLOG) PER UNIT SC SCH (21:00)
[2020-05-15] MEDS ORDERED: GABAPENTIN 300 MG CAP PO SCH (21:00)
[2020-05-15 23:00] VITALS: BP 126/84
--- NOTE | 2020-05-16 00:52 | REP ---
URINARY BLADDER ULTRASOUND: Real-time sonographic evaluation of urinary bladder performed. Bladder measures 14.3 x 8.3 x 7.8 cm, total volume 605 mL. On the left posteriorly, suspected polyp/mass is noted of the bladder wall 1.3 cm in diameter. No other area of wall thickening is seen, and there is no evidence of calculus. Postvoid residual is 58 mL, 10% of the original volume. Ureteral jets are seen in the urinary bladder bilaterally with Doppler color evaluation. IMPRESSION: Suspect 1.3 cm polyp/mass posteriorly of the left bladder wall. Mild postvoid residual. Electronically Signed by Bello Shaver MD 05/16/2020 09:41 A
[2020-05-16 06:00] VITALS: BP 133/61
[2020-05-16 06:00] LABS: BASO % 0.3 % (0.0-1.0); EOS # 0.3 10^3/uL (0.0-0.5); EOS % 3.9 % (0.0-3.0); HEMOGLOBIN 11.9 g/dl (13.5-17.5); LYMPH # 1.6 10^3/uL (1.5-5.0); LYMPH % 20.3 % (24.0-44.0); MEAN CORPUSCULAR HEMOGLOBIN 29.7 pg (27.0-33.0); MEAN CORPUSCULAR HGB CONC 33.1 g/dl (32.0-36.5); MEAN CORPUSCULAR VOLUME 89.8 fl (80.0-96.0); MONO # 0.7 10^3/uL (0.0-0.8); MONO % 8.5 % (0.0-5.0); NEUTROPHILS # 5.3 10^3/uL (1.5-8.5); NEUTROPHILS % 66.7 % (36.0-66.0); PLATELET COUNT, AUTOMATED 261 10^3/uL (150-450); RED BLOOD COUNT 4.01 10^6/uL (4.30-6.10); WHITE BLOOD COUNT 7.9 10^3/uL (4.0-10.0)
[2020-05-16 06:24] LABS: CALCIUM LEVEL 8.4 MG/DL (8.8-10.2); CREATININE FOR GFR 1.6 MG/DL (0.70-1.30); GLOMERULAR FILTRATION RATE 45.5 (>42); POTASSIUM SERUM 3.8 MEQ/L (3.5-5.1)
[2020-05-16] MEDS: HumaLOG INSULIN (NovoLOG) PER UNIT SC SCH ×2 (07:30→12:00)
[2020-05-16] MEDS ORDERED: PANTOPRAZOLE 40MG TAB (PROTONIX) PO SCH (09:00)
[2020-05-16] MEDS ORDERED: CitaloPRAM (CeleXA) 20 MG TAB PO SCH (09:00)
[2020-05-16] MEDS ORDERED: GABAPENTIN 300 MG CAP PO SCH (09:00)
[2020-05-16] MEDS ORDERED: amLODIPine 10 MG TAB PO SCH (09:00)
[2020-05-16] MEDS ORDERED: metFORMIN XR 750 MG TAB PO SCH (09:00)
[2020-05-16] MEDS ORDERED: ASPIRIN 81 MG ENTERIC TAB PO SCH (09:00)
[2020-05-16 09:36] VITALS: BP 122/58
--- NOTE | 2020-05-16 13:43 | DS.PDOC ---
Discharge Summary General Date of Admission May 15, 2020 at 16:44 Date of Discharge 05/15/2020 Discharge Summary PROCEDURES PERFORMED DURING STAY: [None]. ADMITTING DIAGNOSES: 1. Gross hematuria with acute blood loss 2. Large bladder mass 3. HTN 4. Abnormal urinalysis 5. Chronic back pain 6. Depression 7. Chronic diabetic neuropathy 8. Diabetes DISCHARGE DIAGNOSES: 1. Gross hematuria with acute blood loss - Resolving 2. Large bladder mass 3. HTN 4. Chronic back pain 5. Depression 6. Chronic diabetic neuropathy 7. Diabetes COMPLICATIONS/CHIEF COMPLAINT: Bladder Mass. HISTORY OF PRESENT ILLNESS: Mr. Wen is a 70-year-old male with history of paralyzed right hemidiaphragm, cervical spine surgery, diabetes with retinopathy status post photocoagulation, obstructive sleep apnea on chronic continuous positive airway pressure (CPAP), hypertension, hyperlipidemia, bilateral carpal tunnel, testalgia, osteoarthritis, restless legs, abnormal thyroid-stimulating hormone (TSH), peripheral vascular disease status post [id number] cross femoral bypass and angioplasty of right leg with right [id number] amputation, who presented to the emergency room with acute onset of dark urine. The patient had hematuria the day prior to admission in the late afternoon twice. He showed his . His said "we should have that looked at." The patient denied any dizziness, lightheadedness, shortness of breath, chest pain, pressure or tightness, palpitations, fever, chills, nausea, vomiting, diarrhea, or abdominal pain. The patient said he fell about two weeks prior to admission and had some pain on his right side. He thought it would go away. It worsened in the morning when he gets up from the chair. No nonsteroidal antiinflammatory drug (NSAID) use for this pain and he has just pushed through the pain without taking medication. He denies any dysuria, urgency, frequency. He usually urinates 3-4 times a day and then once at night. The patient presented to the emergency room (ER) for further evaluation and was found to have some anemia with hemoglobin of [address] abdomen and pelvis showed a large bladder mass with mild left-sided hydronephrosis. HOSPITAL COURSE: Shortly after being admitted to the hospital Mr. Wen was seen by urology who preferred to see Mr. Zamora in the outpatient setting for cystoscopy and follow-up for his bladder mass which was found on CT and followup with a bladder ultrasound. Mr. Zamora did not require any blood transfusions during his stay and was able to maintain good vital signs with a 1 liter normal saline fluid bolus for B/P support. He was also noted to have a blood sugar level of 41 which increased to 81 after receiving a cup of apple juice. Prior to discharge there was no decrease in his hemoglobin with a stable hematocrit. DISCHARGE MEDICATIONS: Please see below. ALLERGIES: Please see below. PHYSICAL EXAMINATION ON DISCHARGE: VITAL SIGNS: Please see below. GENERAL: Well nourished male laying in bed in no apparent distress HEENT: Normocephalic, atraumatic. EOMI. No lymphadenopathy. No facial rashes. CARDIOVASCULAR EXAMINATION: RRR with no murmurs, rubs, gallops noted RESPIRATORY EXAMINATION: Lungs CTA B/L with no wheezes, rales, rhonchi ABDOMINAL EXAMINATION: Soft and mildly tender to deep palpation in the URQ. No organomegaly noted. No rashes or discolorations. EXTREMITIES: R BKA noted. Remainder of extremity exam unremarkable. Good perfusion in L leg and upper extremities PSYCHIATRIC EXAMINATION: Appropriate affect and mild mannered. Has Capacity LABORATORY DATA: Please see below. IMAGING: Bladder US 05/15/20: Suspect 1.3 cm polyp/mass posteriorly of the left bladder wall. Mild postvoid residual. CT Abdomen and pelvis: Mild left-sided hydronephrosis and hydroureter as described above and possibly secondary to a urinary bladder mass as described above. Urological consultation is suggested. Bilateral nonobstructing nephroliths. PROGNOSIS: fair ACTIVITY: [As tolerated]. DIET: As tolerated DISCHARGE PLAN: DISCHARGE INSTRUCTIONS: 1. Please continue to take medications as prescribed 2. Please follow-up with Urology outpatient at a time selected by their office DISCHARGE CONDITION: [Stable]. TIME SPENT ON DISCHARGE: Greater than 30 minutes. Attending attestation: Patient independently evaluated, agree with resident's plan. Vital Signs/I&Os Vital Signs Date Time Temp Pulse Resp B/P (MAP) Pulse Ox O2 Delivery O2 Flow Rate FiO2 05/16/20 09:36 75 122/58 05/16/20 06:00 96.2 18 92 Room Air I&O- Last 24 Hours up to 6 AM 05/16/20 06:00 Intake Total 2250 ml Output Total 1800 ml Balance 450 ml Laboratory Data Labs 24H Laboratory Tests 2 05/15/20 17:45: Bedside Glucose (Misc Panel) 136H 05/15/20 21:16: Bedside Glucose (Misc Panel) 203H 05/16/20 05:28: Immature Granulocyte % (Auto) 0.3, Neutrophils (%) (Auto) 66.7H, Lymphocytes (%) (Auto) 20.3L, Monocytes (%) (Auto) 8.5H, Eosinophils (%) (Auto) 3.9H, Basophils (%) (Auto) 0.3, Neutrophils # (Auto) 5.3, Lymphocytes # (Auto) 1.6, Monocytes # (Auto) 0.7, Eosinophils # (Auto) 0.3, Basophils # (Auto) 0.0, Nucleated Red Blood Cells % (auto) 0.0, Anion Gap 8, Glomerular Filtration Rate 45.5, Calcium Level 8.4L 05/16/20 06:45: Bedside Glucose (Misc Panel) 81L CBC/BMP Laboratory Tests 05/16/20 05:28 FSBS Laboratory Tests Test 05/15/20 17:45 05/15/20 21:16 05/16/20 06:45 Range/Units Bedside Glucose (Misc Panel) 136 203 81 83-110 MG/DL Microbiology Microbiology 05/16/20 Respiratory Virus Panel (PCR) (FRANKY) - Final, Complete 05/15/20 Urine Culture - Final, Complete Discharge Medications Scheduled Amlodipine Besylate (Amlodipine Besylate) 10 Mg Tablet, 10 MG PO DAILY, (Reported) Aspirin (Aspirin EC) 81 Mg Tablet.dr, 81 MG PO DAILY, (Reported) Citalopram Hydrobromide (Celexa) 20 Mg Tablet, 20 MG PO DAILY, (Reported) Esomeprazole Magnesium (Nexium) 40 Mg Cap, 40 MG PO DAILY, (Reported) Furosemide (Furosemide) 40 Mg Tablet, 40 MG PO DAILY, (Reported) Gabapentin (Gabapentin) 300 Mg Capsule, 900 MG PO QHS, (Reported) Gabapentin (Gabapentin) 300 Mg Capsule, 600 MG PO DAILY, (Reported) Glimepiride (Glimepiride) 4 Mg Tablet, 4 MG PO DAILY, (Reported) Hydrochlorothiazide (Hydrochlorothiazide) 12.5 Mg Tablet, 12.5 MG PO DAILY, (Reported) Insulin Glargine (Lantus) 100 Unit/1 Ml Vial, 30 UNITS SC QHS, (Reported) Liraglutide (Victoza 2-[place]) 18 Mg/3 Ml Inj, 1.8 MG SC DAILY, (Reported) Losartan Potassium (Losartan Potassium) 100 Mg Tablet, 100 MG PO DAILY, (Reported) Metformin HCl (Metformin HCl ER) 750 Mg Tab.er.24h, 1,500 MG PO QAM, (Reported) Metformin HCl (Metformin HCl ER) 750 Mg Tab.er.24h, 750 MG PO QHS, (Reported) Rivaroxaban (Xarelto) 20 Mg Tablet, 20 MG PO DAILY, (Reported) Scheduled PRN Acetaminophen (Acetaminophen) 500 Mg Tablet, 1,000 MG PO Q8H PRN for PAIN / FEVER, (Reported) Baclofen (Baclofen) 10 Mg Tablet, 10 MG PO TID PRN for MUSCLE SPASMS, (Reported) Mometasone Furoate Monohydrate (Nasonex) 120 [place]/17 Gm Naspr, 2 SPRAY NA DAILY PRN for CONGESTION AND ALLERGIES, (Reported) Allergies Coded Allergies: Penicillins (Verified Allergy, Unknown, 03/28/20) TAPE (Verified Allergy, Unknown, PLASTIC TAPE, 03/28/20) SHAUNA REEVES S-3 May 16, 2020 13:43 ANTONI MENDEZ D.O. May 16, 2020 14:55 LESLY LAGUNAS MD May 18, 2020 10:36
[2020-05-16] MEDS ORDERED: RIVAROXABAN 20 MG TAB (XARELTO) PO SCH (18:00)
--- NOTE | 2020-05-17 14:42 | IPNPDOC ---
Date Seen The patient was seen on 05/17/20. Progress Note late entry addendum: DAMARI on admission in the setting of hematuria -creatinine was 2, decreased prior to discharge (.16 creatinine.) -no documented history of CKD. last creatinine was 1.o in 2014 VS, I&O, 24H, Fishbone Vital Signs/I&O Vital Signs Date Time Temp Pulse Resp B/P (MAP) Pulse Ox O2 Delivery O2 Flow Rate FiO2 05/16/20 09:36 75 122/58 05/16/20 06:00 96.2 18 92 Room Air I&O- Last 24 Hours up to 6 AM 05/17/20 06:00 Intake Total 240 ml Output Total 850 ml Balance -610 ml Laboratory Data Microbiology Microbiology 05/16/20 Respiratory Virus Panel (PCR) (FRANKY) - Final, Complete 05/15/20 Urine Culture - Final, Complete JACQUELINE WEN MD May 17, 2020 14:42
== END 2020-05-16 13:26 | disposition home or self-care (01) | DRG 699 ==
LOC: M ED 11:02 → M ED INP 16:44
PROVIDERS: ADMIT General Practice; ATTEND Internal Medicine
DX: N32.89 Other specified disorders of bladder (principal); N17.9 Acute kidney failure, unspecified; D62 Acute posthemorrhagic anemia; R31.0 Gross hematuria; F32.9 Major depressive disorder, single episode, unspecified; I10 Essential (primary) hypertension; M54.5 Low back pain; E11.319 Type 2 diabetes mellitus with unspecified diabetic retinopathy without macular edema; G47.33 Obstructive sleep apnea (adult) (pediatric); G25.81 Restless legs syndrome; E11.51 Type 2 diabetes mellitus with diabetic peripheral angiopathy without gangrene; E78.5 Hyperlipidemia, unspecified; M19.90 Unspecified osteoarthritis, unspecified site; Z89.511 Acquired absence of right leg below knee; Z79.82 Long term (current) use of aspirin; Z79.899 Other long term (current) drug therapy; Z79.4 Long term (current) use of insulin; Z88.0 Allergy status to penicillin; Z88.5 Allergy status to narcotic agent; J98.6 Disorders of diaphragm

== ENCOUNTER → 2020-05-20 | Outpatient (REF) | payer MEDICARE, OTHER ==
[~2020-05-20] MED LIST changes: +ACET-683 PO; +AMLO1TAB25 PO; +ASPI81TA26 PO; +FURO40TA2 PO; +GABA-843 PO; +GLIM4TAB5 PO; +HYDR12.55 PO; +LOSA100T50 PO; +METF750T36 PO; +ROSU10TA6 PO; -VITA1TAB23 PO; +VITA250T20 PO; +XARE20TA PO
== END ==
LOC: M SMT 16:53
PROVIDERS: ATTEND Urology
DX: R31.0 Gross hematuria (principal)

== ENCOUNTER 2020-06-28 01:00 | Inpatient (IN) | payer MEDICARE, OTHER ==
[~2020-06-28] VITALS: Ht 180.3 cm; Wt 110.2 kg
[~2020-06-28 01:00] MED LIST changes: -ROSU10TA6 PO
[2020-06-28 01:47] LABS: BASO % 0.3 % (0.0-1.0); EOS # 0.2 10^3/uL (0.0-0.5); EOS % 2.1 % (0.0-3.0); HEMATOCRIT 35.4 % (42.0-52.0); HEMOGLOBIN 11.6 g/dl (13.5-17.5); LYMPH % 8.5 % (24.0-44.0); MEAN CORPUSCULAR HEMOGLOBIN 30.5 pg (27.0-33.0); MEAN CORPUSCULAR HGB CONC 32.8 g/dl (32.0-36.5); MEAN CORPUSCULAR VOLUME 93.2 fl (80.0-96.0); MONO # 0.8 10^3/uL (0.0-0.8); MONO % 6.5 % (0.0-5.0); NEUTROPHILS # 9.6 10^3/uL (1.5-8.5); NEUTROPHILS % 82.2 % (36.0-66.0); PLATELET COUNT, AUTOMATED 252 10^3/uL (150-450); WHITE BLOOD COUNT 11.7 10^3/uL (4.0-10.0)
[2020-06-28] MEDS: IPRATROPIUM 0.5MG/ALBUTEROL 2.5MG INH SOL UD 3ML (DUONEB) NEB SCH ×3 (01:56→02:50)
[2020-06-28 01:57] LABS: INR 1.34; PROTHROMBIN TIME 16.9 SECONDS (11.8-14.0)
[2020-06-28 01:59] LABS: PARTIAL THROMBOPLASTIN TIME 44.7 SECONDS (25.0-38.4)
[2020-06-28] MEDS ORDERED: ISOVUE-370 76% 100ML VIAL As Ordered ONE (02:08)
[2020-06-28 02:11] LABS: CALCIUM LEVEL 8.3 MG/DL (8.8-10.2); CREATININE FOR GFR 1.54 MG/DL (0.70-1.30); GLOMERULAR FILTRATION RATE 47.5 (>42); POTASSIUM SERUM 4.3 MEQ/L (3.5-5.1)
[2020-06-28 02:12] LABS: ALBUMIN 3.8 GM/DL (3.2-5.2); BILIRUBIN,DIRECT 0.4 MG/DL (0.0-0.2); BILIRUBIN,TOTAL 1.6 MG/DL (0.2-1.0); TOTAL PROTEIN 7.6 GM/DL (6.4-8.2)
--- NOTE | 2020-06-28 02:43 | REPVR ---
PROCEDURE INFORMATION: Exam: CT Angiography Chest With Contrast Exam date and time: 06/28/2020 2:02 AM Age: 70 years old Clinical indication: Pain; Shortness of breath; Other: Hypoxiia; Additional info: Sudden onset of SOB, hypoxia TECHNIQUE: Imaging protocol: Computed tomographic angiography of the chest with intravenous contrast. 3D rendering (Not supervised by radiologist): MIP and/or 3D reconstructed images were created by the technologist. Radiation optimization: All CT scans at this facility use at least one of these dose optimization techniques: automated exposure control; mA and/or kV adjustment per patient size (includes targeted exams where dose is matched to clinical indication); or iterative reconstruction. Contrast material: ISO; Contrast volume: 75 ml; Contrast route: INTRAVENOUS (IV); COMPARISON: CT Chest without contrast 07/18/2019 10:45 AM FINDINGS: Pulmonary arteries: The main pulmonary artery measures 33 mm. No pulmonary embolism is identified. Aorta: The ascending thoracic aorta measures 36 mm. Lungs: Mild scattered pulmonary infiltrates with minimal atelectasis and some consolidation in the left lower lobe. There is slight interstitial coarsening. Pleural space: Minimal left pleural effusion. Heart: Unremarkable. No cardiomegaly. No pericardial effusion. Lymph nodes: Small mediastinal lymph nodes which are borderline overall and greatest in the aorticopulmonary window and azygo-esophageal recess. Gallbladder and bile ducts: Status post cholecystectomy. Spleen: Splenic calcifications. Bones/joints: Unremarkable. No acute fracture. Soft tissues: Unremarkable. IMPRESSION: 1. Minimal left pleural effusion with mild scattered bilateral pulmonary infiltrates with interstitial coarsening and minimal scattered atelectasis and some consolidation in the left lower lobe consistent with pneumonia which is new since 07/18/2019. Pulmonary edema is not excluded. 2. Status post cholecystectomy. 3. Borderline mediastinal nodes which are nonspecific. 4. Otherwise negative CTA chest. No pulmonary embolism is identified. Electronically signed by: Aron Vasquez On 06/28/2020 02:42:46 AM
[2020-06-28] MEDS ORDERED: FUROSEMIDE 40MG/4ML VIAL (J1940) IV ONE ×2 (03:00→18:00)
[2020-06-28] MEDS ORDERED: cefTRIAXone SOD 1 GM in D5W MINI-BAG PLUS 50 ML IV ONE (03:00)
[2020-06-28] MEDS ORDERED: DOXYCYCLINE HYCLATE 100 MG in D5W MINI-BAG PLUS 100 ML IV ONE (03:00)
[2020-06-28] MEDS ORDERED: GLUCOSE 4GM CHEW TABLET PO PRN (03:30)
[2020-06-28] MEDS ORDERED: GLUCAGON INJ 1MG VIAL SC PRN (03:30)
[2020-06-28] MEDS ORDERED: DEXTROSE 50% 50 ML SYRINGE IV PRN (03:30)
[2020-06-28] MEDS ORDERED: ACETAMINOPHEN TAB 650MG DOSE (2X325MG) PO PRN (03:30)
--- NOTE | 2020-06-28 03:31 | HPEPDOC ---
[facility] Medical History & Physical Date of Admission Jun 28, 2020 Date of Service: Jun 28, 2020 History and Physical CHIEF COMPLAINT: SOB HISTORY OF PRESENT ILLNESS: Patient is 70 year old male with PMH CHF, IDDM, HTN, HLD, R. hemidiaphragm paralysis 2/2 cervical spine injury, CARLOS on CPAP, PVD on Xarelto and RLS presents to the ER tonight with complaints of SOB. He reports sudden onset of SOB, he does get like this from time to time and attributes it to his hemidaphragmatic paralysis. He states that he feels completely well prior to the episode tonight. He was initially noted to drop to 70s saturation on arrival, didn't respond well or nasal cannula or high low and was placed on table top bipap. His saturation is currently mid 90s and feels well. He reports feeling much better and denies any complaint at this time including any chest discomfort, SOB, fever or chills. He does report LLE edema, unsure if its worse than normal but there is a dressing on likely due to blister rupture. CT scan angio does not show any evidence of thromboembolism. Minimal pleural effusion noted, b/l pulmonary infiltrates vs. interstitial congestion. PAST MEDICAL HISTORY: Refer to HPI PAST SURGICAL HISTORY: R. BKA b/l carpal tunnel release cholecystectomy lumbar laminectomy SOCIAL HISTORY: Denies tobacco, alcohol or drug use. FAMILY HISTORY: Mother- DM ALLERGIES: Please see below. REVIEW OF SYSTEMS: 10 point ROS negative except as above HOME MEDICATIONS: Please see below. PHYSICAL EXAMINATION: - General: Lying in bed comfortably with CPAP on, AAOx3 - HEENT: Atraumatic, PERRLA - CVS: +S1S2 - Lungs: Decrease air entry b/l 2/2 body habitus, minimal rales b/l bases. - Abdomen: Soft, Non-distended, Non-tender - Extremities: R. BKA. LLE 1-2+ pitting edema with discoloration. [address] - Skin: Warm and dry. LLE chronic stasis changes. - Neuro: No focal motor or sensory deficit LABORATORY DATA: See below. IMAGING: CT chest angio: 1. Minimal left pleural effusion with mild scattered bilateral pulmonary infiltrates with interstitial coarsening and minimal scattered atelectasis and some consolidation in the left lower lobe consistent with pneumonia which is new since 07/18/2019. Pulmonary edema is not excluded. 2. Status post cholecystectomy. 3. Borderline mediastinal nodes which are nonspecific. 4. Otherwise negative CTA chest. No pulmonary embolism is identified. MICROBIOLOGY: Please see below. ASSESSMENT AND PLAN: 1. SOB - CHF unknown type exacerbation vs. b/l PNA - BNP 2500. b/l opacities vs. interstitial edema on CT scan, no PE. - Patient afebrile. No significant respiratory symptoms, mild leukocytosis WBC 11. - Elevated BNP. Monitor Daily weights, I/O monitor. Fluid restriction. - IV Lasix 40 mg q8H. Obtain ECHO. - Continue with rocephin and doxycycline. 2. IDDM - Resume home dose insulin. - consistent carbohydrate diet. ISS. 3. HTN - Resume home med. 4. RLS 5. R. hemidiaphragm paralysis and CARLOS - c/w cervical spine injury. - pain control. resume home meds. gabapentin, baclofen, tylenol. - CPAP at night. 6. PVD - c/w Xarelto. - s/p R. BKA 7. paroxysmal Afib - No previous documented hx, possibly new onset. - rate controlled. Already on Xarelto. DVT ppx: On Xarelto Code status: Full code Vital Signs Vital Signs Date Time Temp Pulse Resp B/P (MAP) Pulse Ox O2 Delivery O2 Flow Rate FiO2 06/28/20 01:30 Room Air 75 06/28/20 01:30 06/28/20 01:01 98.2 103 19 91 Laboratory Data Labs 24H Laboratory Tests 2 06/28/20 01:30: Immature Granulocyte % (Auto) 0.4, Neutrophils (%) (Auto) 82.2H, Lymphocytes (%) (Auto) 8.5L, Monocytes (%) (Auto) 6.5H, Eosinophils (%) (Auto) 2.1, Basophils (%) (Auto) 0.3, Neutrophils # (Auto) 9.6H, Lymphocytes # (Auto) 1.0L, Monocytes # (Auto) 0.8, Eosinophils # (Auto) 0.2, Basophils # (Auto) 0.0, Nucleated Red Blood Cells % (auto) 0.0, Prothrombin Time 16.9H, Prothromb Time International Ratio 1.34, Activated Partial Thromboplast Time 44.7H, Anion Gap 3L, Glomerular Filtration Rate 47.5, Calcium Level 8.3L, Total Bilirubin 1.6H, Direct Bilirubin 0.4H, Aspartate Amino Transf (AST/SGOT) 26, Alanine Aminotransferase (ALT/SGPT) 26, Alkaline Phosphatase 139H, GJ-Irw-E-Type Natriuretic Peptide 2513H, Total Protein 7.6, Albumin 3.8, Albumin/Globulin Ratio 1.0 CBC/BMP Laboratory Tests 06/28/20 01:30 Microbiology Microbiology 06/28/20 Blood Culture, Received Pending 06/28/20 Blood Culture, Received Pending Home Medications Scheduled Amlodipine Besylate (Amlodipine Besylate) 10 Mg Tablet, 10 MG PO DAILY Aspirin (Aspirin EC) 81 Mg Tablet.dr, 81 MG PO DAILY Citalopram Hydrobromide (Celexa) 20 Mg Tablet, 20 MG PO DAILY Esomeprazole Magnesium (Nexium) 40 Mg Cap, 40 MG PO DAILY Furosemide (Furosemide) 40 Mg Tablet, 40 MG PO DAILY Gabapentin (Gabapentin) 300 Mg Capsule, 900 MG PO QHS Gabapentin (Gabapentin) 300 Mg Capsule, 600 MG PO DAILY Glimepiride (Glimepiride) 4 Mg Tablet, 4 MG PO DAILY Hydrochlorothiazide (Hydrochlorothiazide) 12.5 Mg Tablet, 12.5 MG PO DAILY Insulin Glargine (Lantus) 100 Unit/1 Ml Vial, 35 UNITS SC QHS Liraglutide (Victoza 2-[place]) 18 Mg/3 Ml Inj, 1.8 MG SC DAILY Losartan Potassium (Losartan Potassium) 100 Mg Tablet, 100 MG PO DAILY Metformin HCl (Metformin HCl ER) 750 Mg Tab.er.24h, 1,500 MG PO QAM Metformin HCl (Metformin HCl ER) 750 Mg Tab.er.24h, 750 MG PO QHS Mometasone Furoate Monohydrate (Nasonex) 120 [place]/17 Gm Naspr, 2 SPRAY NA DAILY Rivaroxaban (Xarelto) 20 Mg Tablet, 20 MG PO DAILY Rosuvastatin Calcium (Rosuvastatin Calcium) 10 Mg Tablet, 10 MG PO DAILY Scheduled PRN Acetaminophen (Acetaminophen) 500 Mg Tablet, 1,000 MG PO Q8H PRN for PAIN / FEVER Baclofen (Baclofen) 10 Mg Tablet, 10 MG PO TID PRN for MUSCLE SPASMS Allergies Coded Allergies: Penicillins (Verified Allergy, Unknown, 03/28/20) TAPE (Verified Allergy, Unknown, PLASTIC TAPE, 03/28/20) A-FIB/CHADSVASC A-FIB History Current/History of A-Fib/PAF?: No PERLITA NAVARRO MD Jun 28, 2020 03:31
[2020-06-28 04:45] VITALS: BP 149/86
[2020-06-28] MEDS ORDERED: ROSU10TA6 PO (05:18)
[2020-06-28 05:43] LABS: HEMATOCRIT 33.8 % (42.0-52.0); MEAN CORPUSCULAR HEMOGLOBIN 30.5 pg (27.0-33.0); MEAN CORPUSCULAR HGB CONC 32.5 g/dl (32.0-36.5); MEAN CORPUSCULAR VOLUME 93.6 fl (80.0-96.0); PLATELET COUNT, AUTOMATED 236 10^3/uL (150-450); RED BLOOD COUNT 3.61 10^6/uL (4.30-6.10); WHITE BLOOD COUNT 10.7 10^3/uL (4.0-10.0)
[2020-06-28] MEDS ORDERED: BACLOFEN 10 MG TAB PO PRN (06:00)
[2020-06-28 06:09] LABS: CALCIUM LEVEL 7.9 MG/DL (8.8-10.2); CREATININE FOR GFR 1.59 MG/DL (0.70-1.30); GLOMERULAR FILTRATION RATE 45.8 (>42); POTASSIUM SERUM 4.1 MEQ/L (3.5-5.1)
[2020-06-28] MEDS: cefTRIAXone SOD 1 GM in D5W MINI-BAG PLUS 50 ML IV SCH (06:57)
[2020-06-28] MEDS ORDERED: DOXYCYCLINE HYCLATE 100MG TABLET PO ONE (07:00)
[2020-06-28] MEDS ORDERED: GLIMEPIRIDE 2 MG TAB PO SCH (07:30)
[2020-06-28 08:00] VITALS: BP 139/87
[2020-06-28] MEDS: ASPIRIN 81 MG ENTERIC TAB PO SCH (08:33)
[2020-06-28] MEDS: LOSARTAN 50MG TABLET PO SCH (08:33)
[2020-06-28] MEDS: GABAPENTIN 300 MG CAP PO SCH ×2 (08:34→20:30)
[2020-06-28] MEDS: PANTOPRAZOLE 40MG TAB (PROTONIX) PO SCH (08:34)
[2020-06-28] MEDS: CitaloPRAM (CeleXA) 20 MG TAB PO SCH (08:34)
[2020-06-28] MEDS: amLODIPine 10 MG TAB PO SCH (08:34)
[2020-06-28] MEDS: hydroCHLOROthiazide 12.5 MG CAPSULE PO SCH (08:34)
[2020-06-28] MEDS: ROSUVASTATIN 10 MG TAB (CRESTOR) PO SCH (08:34)
[2020-06-28] MEDS: RIVAROXABAN 20 MG TAB (XARELTO) PO SCH (08:34)
[2020-06-28] MEDS: FLUTICASONE PROP 0.05% NASAL SPRAY 16 GM (FLONASE) SCH (08:36)
[2020-06-28] MEDS: HumaLOG INSULIN (NovoLOG) PER UNIT SC SCH ×4 (08:36→20:18)
[2020-06-28] MEDS ORDERED: SLF 3 ML SYR IV PRN (11:15)
[2020-06-28] MEDS: SLF 3 ML SYR IV SCH ×2 (11:39→20:31)
[2020-06-28] MEDS: FUROSEMIDE 40MG/4ML VIAL (J1940) IV SCH ×2 (11:56→20:30)
[2020-06-28 12:00] VITALS: BP 136/70
[2020-06-28 16:00] VITALS: BP 137/82
--- NOTE | 2020-06-28 18:08 | REPVR ---
PROCEDURE INFORMATION: Exam: XR Chest, 1 View Exam date and time: 06/28/2020 5:54 PM Age: 70 years old Clinical indication: Shortness of breath; Additional info: SOB TECHNIQUE: Imaging protocol: XR of the chest Views: 1 view. COMPARISON: CR PORTABLE CHEST X-RAY 06/28/2020 1:46 AM FINDINGS: Lungs: Bibasilar atelectasis and probable infiltrate in the left lower lobe. Pleural space: Unremarkable. No pleural effusion. No pneumothorax. Heart/Mediastinum: Unremarkable. No cardiomegaly. Bones/joints: Shallow dextroscoliosis. The spine demonstrates moderate degenerative changes. IMPRESSION: Bibasilar atelectasis and probable infiltrate in the left lower lobe. Electronically signed by: Jeffry White On 06/28/2020 18:08:23 PM
[2020-06-28 18:29] LABS: ABG BASE EXCESS -2.2 (-2.0-2.0); ABG HCO3 23.3 MEQ/L (22.0-26.0); ABG PARTIAL PRESSURE CO2 42.7 mmHg (35.0-45.0); ABG PARTIAL PRESSURE O2 64.2 mmHg (75.0-100.0); ABG STANDARD HCO3 22.6 MEQ/L (22.0-26.0); ABG TOTAL CO2 24.6 MEQ/L (23.0-31.0); ABG pH (ARTERIAL) 7.355 UNITS (7.350-7.450)
[2020-06-28 18:30] LABS: ABG O2 SATURATION 91.9 % (95.0-99.0)
[2020-06-28] MEDS: IPRATROPIUM 0.5MG/ALBUTEROL 2.5MG INH SOL UD 3ML (DUONEB) NEB PRN ×2 (19:31→22:54)
[2020-06-28 20:00] VITALS: BP 130/76
[2020-06-28] MEDS: LEVEMIR (INSULIN DETEMIR) 1 UNITS/0.01ML SC SCH (20:30)
[2020-06-28] MEDS: DOXYCYCLINE HYCLATE 100MG TABLET PO SCH (20:30)
[2020-06-28 22:25] VITALS: BP 138/65
[2020-06-29] VITALS (10 sets, daily range): BP systolic 129–159; BP diastolic 64–86
[2020-06-29] MEDS: FUROSEMIDE 40MG/4ML VIAL (J1940) IV SCH ×3 (04:17→19:15)
[2020-06-29 04:57] LABS: HEMATOCRIT 31.2 % (42.0-52.0); HEMOGLOBIN 10.5 g/dl (13.5-17.5); MEAN CORPUSCULAR HEMOGLOBIN 31.6 pg (27.0-33.0); MEAN CORPUSCULAR HGB CONC 33.7 g/dl (32.0-36.5); PLATELET COUNT, AUTOMATED 233 10^3/uL (150-450); RED BLOOD COUNT 3.32 10^6/uL (4.30-6.10); WHITE BLOOD COUNT 9.9 10^3/uL (4.0-10.0)
[2020-06-29 05:36] LABS: CALCIUM LEVEL 8.1 MG/DL (8.8-10.2); CREATININE FOR GFR 1.75 MG/DL (0.70-1.30); MAGNESIUM LEVEL 1.4 MG/DL (1.8-2.4); POTASSIUM SERUM 4.4 MEQ/L (3.5-5.1)
[2020-06-29] MEDS: cefTRIAXone SOD 1 GM in D5W MINI-BAG PLUS 50 ML IV SCH (06:05)
[2020-06-29] MEDS: SLF 3 ML SYR IV SCH ×3 (06:05→21:39)
[2020-06-29] MEDS: MAG SULF 1GM/100ML (MAG RUN) 1 GM in IV 1 EA IV SCH ×2 (06:46→07:53)
[2020-06-29] MEDS: HumaLOG INSULIN (NovoLOG) PER UNIT SC SCH ×4 (08:09→20:48)
[2020-06-29] MEDS: DOXYCYCLINE HYCLATE 100MG TABLET PO SCH ×2 (08:10→20:59)
[2020-06-29] MEDS: PANTOPRAZOLE 40MG TAB (PROTONIX) PO SCH (08:10)
[2020-06-29] MEDS: hydroCHLOROthiazide 12.5 MG CAPSULE PO SCH (08:10)
[2020-06-29] MEDS: GABAPENTIN 300 MG CAP PO SCH ×2 (08:10→20:59)
[2020-06-29] MEDS: ASPIRIN 81 MG ENTERIC TAB PO SCH (08:11)
[2020-06-29] MEDS: amLODIPine 10 MG TAB PO SCH (08:11)
[2020-06-29] MEDS: ROSUVASTATIN 10 MG TAB (CRESTOR) PO SCH (08:11)
[2020-06-29] MEDS: RIVAROXABAN 20 MG TAB (XARELTO) PO SCH (08:11)
[2020-06-29] MEDS: CitaloPRAM (CeleXA) 20 MG TAB PO SCH (08:11)
[2020-06-29] MEDS: LOSARTAN 50MG TABLET PO SCH (08:12)
[2020-06-29] MEDS: FLUTICASONE PROP 0.05% NASAL SPRAY 16 GM (FLONASE) SCH (08:13)
--- NOTE | 2020-06-29 19:35 | IPNPDOC ---
Subjective Date Seen The patient was seen on 06/29/20. Subjective Chief Complaint/HPI SOb General: Reports: Normal Appetite; Denies: Chills, Night Sweats, Fatigue, Malaise Constitutional: Denies: Chills, Fever, Night Sweats Eyes: Denies: Pain, Vision change ENT: Denies: Head Aches, Ear Pain, Dysphagia Skin: Denies: Rash, Lesions, Breakdown Pulmonary: Denies: Dyspnea, Cough Cardiovascular: Denies: Chest Pain, Palpitations, Orthopnea, Paroxysmal Noc. Dyspnea, Lt Headedness Gastrointestinal: Denies: Nausea, Vomiting, Abdominal Pain, Diarrhea, Constip ation Genitourinary: Denies: Dysuria, Frequency, Incontinence, Retention Hematologic: Denies: Bruising, Bleeding Excessively Musculoskeletal: Denies: Neck Pain, Back Pain, Joint Pain, Muscle Pain, Spasms Neurological: Denies: Weakness, Numbness, Change in speech, Confusion Psych: Reports: Mood Normal; Denies: Depression, Memory Issues Objective Physical Examination General Exam: Positive: Alert, No Acute Distress Eye Exam: Positive: PERRLA, Conjunctiva & lids normal, EOMI; Negative: Sclera icteric ENT Exam: Positive: Atraumatic, Mucous membr. moist/pink, Pharynx Normal Neck Exam: Positive: Supple; Negative: JVD, thyromegaly Chest Exam: Positive: Normal air movement, Rhonchi Heart Exam: Positive: Rate Normal, Regular Rhythm, Normal S1, Normal S2; Negative: Murmurs, Rubs Telemetry: Positive: No significant arrhythmia Abdomen Exam: Positive: Normal bowel sounds, Soft; Negative: Tenderness, Hepatospenomegaly Male Exam: Positive: Normal Genital Exam Extremity Exam: Positive: Normal pulses; Negative: Clubbing, Cyanosis, Edema Skin Exam: Positive: Nl turgor and temperature; Negative: Rash, Breakdown Neuro Exam: Positive: Normal Gait, Normal Speech, Cranial Nerves 3-12 NL, R eflexes 2+ Psych Exam: Positive: Mental status NL, Mood NL, Oriented x 3 Assessment /Plan Assessment 1. Acute Hypoxic Respiratory Failure -stable overight; ok to transfer to PCU - Continue with rocephin and doxycycline. -conmtinue CPAP at night -lasix to tzarget net 1L fluid balance 2. IDDM - Resume home dose insulin. - consistent carbohydrate diet. ISS. 3. HTN - Resume home med. 4. RLS 5. R. hemidiaphragm paralysis and CARLOS - c/w cervical spine injury. - pain control. resume home meds. gabapentin, baclofen, tylenol. - CPAP at night. 6. PVD - c/w Xarelto. - s/p R. BKA 7. paroxysmal Afib - No previous documented hx, possibly new onset. - rate controlled on BB. Already on Xarelto. DVT ppx: On Xarelto Code status: Full code Plan/VTE VTE Prophylaxis Ordered?: Yes VS, I&O, 24H, Fishbone Vital Signs/I&O Vital Signs Date Time Temp Pulse Resp B/P (MAP) Pulse Ox O2 Delivery O2 Flow Rate FiO2 06/29/20 18:00 94 NIPPV (BIPAP/CPAP) 06/29/20 16:48 98.9 104 20 129/86 (100) 8.0 06/28/20 02:30 100 I&O- Last 24 Hours up to 6 AM 06/29/20 06:00 Intake Total 938 ml Output Total 2250 ml Balance -1312 ml Laboratory Data 24H LABS Laboratory Tests 2 06/29/20 04:07: Nucleated Red Blood Cells % (auto) 0.0, Anion Gap 5L, Glomerular Filtration Rate 41.0L, Calcium Level 8.1L, Magnesium Level 1.4L CBC/BMP Laboratory Tests 06/29/20 04:07 Microbiology Microbiology 06/28/20 Respiratory Virus Panel (PCR) (FRANKY) - Final, Complete 06/28/20 Blood Culture - Preliminary, Resulted No growth after 24 hours . All specim... 06/28/20 Blood Culture - Preliminary, Resulted No growth after 24 hours . All specim... ERIKA BOONE DO Jun 29, 2020 19:35
[2020-06-29] MEDS: LEVEMIR (INSULIN DETEMIR) 1 UNITS/0.01ML SC SCH (20:59)
[2020-06-30] VITALS: BP 145/65
[2020-06-30 04:00] VITALS: BP 168/79
[2020-06-30 04:24] LABS: BASO % 0.3 % (0.0-1.0); EOS # 0.2 10^3/uL (0.0-0.5); EOS % 2.7 % (0.0-3.0); HEMATOCRIT 30.4 % (42.0-52.0); HEMOGLOBIN 10.2 g/dl (13.5-17.5); LYMPH # 1.3 10^3/uL (1.5-5.0); MEAN CORPUSCULAR HEMOGLOBIN 31.3 pg (27.0-33.0); MEAN CORPUSCULAR HGB CONC 33.6 g/dl (32.0-36.5); MEAN CORPUSCULAR VOLUME 93.3 fl (80.0-96.0); MONO # 0.6 10^3/uL (0.0-0.8); MONO % 7.9 % (0.0-5.0); NEUTROPHILS # 5.3 10^3/uL (1.5-8.5); NEUTROPHILS % 71.8 % (36.0-66.0); PLATELET COUNT, AUTOMATED 230 10^3/uL (150-450); RED BLOOD COUNT 3.26 10^6/uL (4.30-6.10); WHITE BLOOD COUNT 7.4 10^3/uL (4.0-10.0)
[2020-06-30 04:47] LABS: CALCIUM LEVEL 8.1 MG/DL (8.8-10.2); CREATININE FOR GFR 1.71 MG/DL (0.70-1.30); GLOMERULAR FILTRATION RATE 42.1 (>42); POTASSIUM SERUM 3.3 MEQ/L (3.5-5.1)
[2020-06-30] MEDS: FUROSEMIDE 40MG/4ML VIAL (J1940) IV SCH (04:50)
[2020-06-30] MEDS: cefTRIAXone SOD 1 GM in D5W MINI-BAG PLUS 50 ML IV SCH (05:12)
[2020-06-30] MEDS: SLF 3 ML SYR IV SCH ×3 (05:23→21:19)
[2020-06-30 05:39] LABS: MAGNESIUM LEVEL 1.7 MG/DL (1.8-2.4)
[2020-06-30] MEDS ORDERED: POTASSIUM CHLORIDE 10 MEQ SR TABLET PO ONE (05:45)
[2020-06-30] MEDS ORDERED: MAG SULF 1GM/100ML (MAG RUN) 1 GM in IV 1 EA IV SCH (06:00)
[2020-06-30 08:00] VITALS: BP 134/61
[2020-06-30] MEDS: amLODIPine 10 MG TAB PO SCH (08:11)
[2020-06-30] MEDS: CitaloPRAM (CeleXA) 20 MG TAB PO SCH (08:11)
[2020-06-30] MEDS: ASPIRIN 81 MG ENTERIC TAB PO SCH (08:11)
[2020-06-30] MEDS: RIVAROXABAN 20 MG TAB (XARELTO) PO SCH (08:11)
[2020-06-30] MEDS: GABAPENTIN 300 MG CAP PO SCH ×2 (08:11→20:46)
[2020-06-30] MEDS: PANTOPRAZOLE 40MG TAB (PROTONIX) PO SCH (08:11)
[2020-06-30] MEDS: ROSUVASTATIN 10 MG TAB (CRESTOR) PO SCH (08:12)
[2020-06-30] MEDS: LOSARTAN 50MG TABLET PO SCH (08:12)
[2020-06-30] MEDS: FLUTICASONE PROP 0.05% NASAL SPRAY 16 GM (FLONASE) SCH (08:12)
[2020-06-30] MEDS: hydroCHLOROthiazide 12.5 MG CAPSULE PO SCH (08:15)
[2020-06-30] MEDS: DOXYCYCLINE HYCLATE 100MG TABLET PO SCH ×2 (08:15→20:45)
[2020-06-30] MEDS: HumaLOG INSULIN (NovoLOG) PER UNIT SC SCH ×4 (08:16→20:29)
[2020-06-30 12:00] VITALS: BP 147/65
--- NOTE | 2020-06-30 13:02 | IPNPDOC ---
Text Note Date of Service The patient was seen on 06/30/20. NOTE S: 70y.o M presenting for acute hypoxic respiratory faiure 2/2 CAP stable overnight. no overnight events ROS: CONSTITUTIONAL: no fevers, chills, sweats and weight changes. EYES: Patient denies any visual symptoms. EARS, NOSE, AND THROAT: No difficulties with hearing. No symptoms of rhinitis or sore throat. CARDIOVASCULAR: no chest pain or paliptation RESPIRATORY: + dyspnea on exertion, no wheezing or cough. GI: No nausea, vomiting, diarrhea, constipation, abdominal pain, hematochezia or melena. : No abnormal urethral discharge. MUSCULOSKELETAL: No myalgias or arthralgias. NEUROLOGIC: No sensory changes PSYCHIATRIC: Patient denies problems with mood disturbance. No problems with anxiety. ENDOCRINE: + urination from lasix DERMATOLOGIC: Patient denies any rashes or skin changes. O: PHYSICAL EXAMINATION: GENERAL: The patient is a well-developed, well-nourished male in no apparent distress. He is alert and oriented x3. VITAL SIGNS: see below HEENT: Head is normocephalic and atraumatic. NECK: Supple. No carotid bruits. No lymphadenopathy or thyromegaly. LUNGS: Clear to auscultation. on 3L supplemental o2 HEART: Regular rate and rhythm without murmur. ABDOMEN: Soft, nontender, and nondistended. Positive bowel sounds. No hepatosplenomegaly was noted. EXTREMITIES: Without any cyanosis, clubbing, rash, lesions or edema. NEUROLOGIC: no focal defecits PSYCHIATRIC: ame mood SKIN: intact Labs: see below Imaging: previous CT and CXR reviewed ASSESSMENT and PLAN 1. Acute Hypoxic Respiratory Failure -stable overight - continues to require supplemental oxygen - Continue with rocephin and doxycycline. -conmtinue CPAP at night -will stop lasix and obtain CXR 2. IDDM - Resume home dose insulin. - consistent carbohydrate diet. ISS. 3. HTN - Resume home med. 4. RLS 5. R. hemidiaphragm paralysis and CARLOS - c/w cervical spine injury. - pain control. resume home meds. gabapentin, baclofen, tylenol. - CPAP at night. 6. PVD - c/w Xarelto. - s/p R. BKA 7. paroxysmal Afib - No previous documented hx, possibly new onset. - rate controlled on BB. Already on Xarelto. DVT ppx: On Xarelto Code status: Full code VS,Fishbone, I+O VS, Fishbone, I+O Laboratory Tests 06/30/20 04:03 Vital Signs Date Time Temp Pulse Resp B/P (MAP) Pulse Ox O2 Delivery O2 Flow Rate FiO2 06/30/20 08:11 101 134/61 06/30/20 08:00 98.1 18 93 High Flow Cannula 3.0 06/28/20 02:30 100 I&O- Last 24 Hours up to 6 AM 06/30/20 06:00 Intake Total 2000 ml Output Total 4400 ml Balance -2400 ml ERIKA BOONE DO Jun 30, 2020 13:02
[2020-06-30 16:00] VITALS: BP 167/79
[2020-06-30 20:00] VITALS: BP 155/76
[2020-06-30] MEDS: LEVEMIR (INSULIN DETEMIR) 1 UNITS/0.01ML SC SCH (20:45)
[2020-07-01] VITALS: BP 142/66
[2020-07-01 04:00] VITALS: BP 162/77
[2020-07-01 04:42] LABS: BASO % 0.3 % (0.0-1.0); EOS # 0.3 10^3/uL (0.0-0.5); EOS % 4.2 % (0.0-3.0); HEMATOCRIT 32.8 % (42.0-52.0); LYMPH % 13.6 % (24.0-44.0); MEAN CORPUSCULAR HEMOGLOBIN 31.3 pg (27.0-33.0); MEAN CORPUSCULAR HGB CONC 33.5 g/dl (32.0-36.5); MEAN CORPUSCULAR VOLUME 93.2 fl (80.0-96.0); MONO # 0.6 10^3/uL (0.0-0.8); MONO % 7.9 % (0.0-5.0); NEUTROPHILS # 5.4 10^3/uL (1.5-8.5); NEUTROPHILS % 73.6 % (36.0-66.0); PLATELET COUNT, AUTOMATED 266 10^3/uL (150-450); RED BLOOD COUNT 3.52 10^6/uL (4.30-6.10); WHITE BLOOD COUNT 7.4 10^3/uL (4.0-10.0)
[2020-07-01 05:17] LABS: CALCIUM LEVEL 8.6 MG/DL (8.8-10.2); CREATININE FOR GFR 1.77 MG/DL (0.70-1.30); GLOMERULAR FILTRATION RATE 40.5 (>42); MAGNESIUM LEVEL 1.8 MG/DL (1.8-2.4); POTASSIUM SERUM 3.8 MEQ/L (3.5-5.1)
[2020-07-01] MEDS: SLF 3 ML SYR IV SCH ×3 (05:21→21:41)
[2020-07-01] MEDS: cefTRIAXone SOD 1 GM in D5W MINI-BAG PLUS 50 ML IV SCH (05:21)
[2020-07-01] MEDS: HumaLOG INSULIN (NovoLOG) PER UNIT SC SCH ×4 (07:33→21:00)
[2020-07-01 08:00] VITALS: BP 175/77
[2020-07-01] MEDS: GABAPENTIN 300 MG CAP PO SCH ×2 (08:26→21:39)
[2020-07-01] MEDS: amLODIPine 10 MG TAB PO SCH (08:26)
[2020-07-01] MEDS: RIVAROXABAN 20 MG TAB (XARELTO) PO SCH (08:26)
[2020-07-01] MEDS: DOXYCYCLINE HYCLATE 100MG TABLET PO SCH ×2 (08:26→21:39)
[2020-07-01] MEDS: ROSUVASTATIN 10 MG TAB (CRESTOR) PO SCH (08:26)
[2020-07-01] MEDS: CitaloPRAM (CeleXA) 20 MG TAB PO SCH (08:27)
[2020-07-01] MEDS: hydroCHLOROthiazide 12.5 MG CAPSULE PO SCH (08:27)
[2020-07-01] MEDS: PANTOPRAZOLE 40MG TAB (PROTONIX) PO SCH (08:27)
[2020-07-01] MEDS: LOSARTAN 50MG TABLET PO SCH (08:27)
[2020-07-01] MEDS: FLUTICASONE PROP 0.05% NASAL SPRAY 16 GM (FLONASE) SCH (08:28)
[2020-07-01] MEDS: ASPIRIN 81 MG ENTERIC TAB PO SCH (08:28)
[2020-07-01 12:00] VITALS: BP 151/64
[2020-07-01] MEDS: METOPROLOL TART 12.5 MG PER 1/2 TAB PO SCH ×2 (14:25→21:40)
[2020-07-01 15:45] VITALS: BP 165/89
[2020-07-01] MEDS: CEFDINIR 300 MG CAP (OMNICEF) PO SCH (21:39)
[2020-07-01] MEDS: LEVEMIR (INSULIN DETEMIR) 1 UNITS/0.01ML SC SCH (21:39)
[2020-07-01 22:00] VITALS: BP 150/78
[2020-07-02] MEDS: SLF 3 ML SYR IV SCH ×3 (05:50→21:52)
[2020-07-02 06:00] VITALS: BP 149/79
[2020-07-02] MEDS: HumaLOG INSULIN (NovoLOG) PER UNIT SC SCH ×4 (07:30→21:00)
[2020-07-02 07:40] LABS: BASO % 0.3 % (0.0-1.0); EOS # 0.3 10^3/uL (0.0-0.5); EOS % 3.9 % (0.0-3.0); HEMOGLOBIN 11.1 g/dl (13.5-17.5); LYMPH # 1.2 10^3/uL (1.5-5.0); LYMPH % 16.2 % (24.0-44.0); MEAN CORPUSCULAR HEMOGLOBIN 30.3 pg (27.0-33.0); MEAN CORPUSCULAR HGB CONC 32.6 g/dl (32.0-36.5); MEAN CORPUSCULAR VOLUME 92.9 fl (80.0-96.0); MONO # 0.6 10^3/uL (0.0-0.8); MONO % 8.3 % (0.0-5.0); NEUTROPHILS # 5.4 10^3/uL (1.5-8.5); PLATELET COUNT, AUTOMATED 296 10^3/uL (150-450); RED BLOOD COUNT 3.66 10^6/uL (4.30-6.10); WHITE BLOOD COUNT 7.6 10^3/uL (4.0-10.0)
[2020-07-02] MEDS: DOXYCYCLINE HYCLATE 100MG TABLET PO SCH ×2 (08:05→21:50)
[2020-07-02] MEDS: amLODIPine 10 MG TAB PO SCH (08:06)
[2020-07-02] MEDS: PANTOPRAZOLE 40MG TAB (PROTONIX) PO SCH (08:06)
[2020-07-02] MEDS: METOPROLOL TART 12.5 MG PER 1/2 TAB PO SCH ×2 (08:07→21:51)
[2020-07-02] MEDS: GABAPENTIN 300 MG CAP PO SCH ×2 (08:07→21:51)
[2020-07-02] MEDS: CitaloPRAM (CeleXA) 20 MG TAB PO SCH (08:07)
[2020-07-02] MEDS: CEFDINIR 300 MG CAP (OMNICEF) PO SCH ×2 (08:07→21:50)
[2020-07-02] MEDS: RIVAROXABAN 20 MG TAB (XARELTO) PO SCH (08:08)
[2020-07-02] MEDS: ROSUVASTATIN 10 MG TAB (CRESTOR) PO SCH (08:08)
[2020-07-02] MEDS: hydroCHLOROthiazide 25 MG TAB PO SCH (08:08)
[2020-07-02] MEDS: metFORMIN XR 750 MG TAB PO SCH (09:00)
[2020-07-02 09:09] LABS: CALCIUM LEVEL 8.5 MG/DL (8.8-10.2); CREATININE FOR GFR 1.57 MG/DL (0.70-1.30); GLOMERULAR FILTRATION RATE 46.5 (>42); MAGNESIUM LEVEL 1.8 MG/DL (1.8-2.4); POTASSIUM SERUM 4.2 MEQ/L (3.5-5.1)
[2020-07-02] MEDS: FLUTICASONE PROP 0.05% NASAL SPRAY 16 GM (FLONASE) SCH (12:44)
--- NOTE | 2020-07-02 13:13 | IPNPDOC ---
Subjective Date Seen The patient was seen on 07/02/20. Subjective Chief Complaint/HPI pt feels comfortable,As per PT probably needs one more day for discharge. General: Denies: ROS Unobtainable, Chills, Night Sweats, Fatigue, Malaise, Normal Appetite, Other Symptoms Constitutional: Denies: Chills, Fever, Malaise, Night Sweats, Weakness, Fatigue, Weight Loss, Lethargy, Other Pulmonary: Denies: Dyspnea, Cough, Pleuritic Chest Pain, Other Symptoms Cardiovascular: Denies: Chest Pain, Palpitations, Orthopnea, Paroxysmal Noc. Dyspnea, Edema, Lt Headedness, Other Symptoms Gastrointestinal: Denies: Nausea, Vomiting, Abdominal Pain, Diarrhea, Constipation, Melena, Hematochezia, Other Symptoms Musculoskeletal: Denies: Neck Pain, Back Pain, Shoulder Pain, Arm Pain, Hand Pain, Leg Pain, Foot Pain, Joint Pain, Muscle Pain, Spasms, Other Symptoms Neurological: Denies: Weakness, Numbness, Incoordination, Change in speech, Confusion, Seizures, Other Symptoms Objective Physical Examination General Exam: Positive: Alert, No Acute Distress Eye Exam: Positive: PERRLA, Conjunctiva & lids normal, EOMI ENT Exam: Positive: Atraumatic, Mucous membr. moist/pink, Pharynx Normal Neck Exam: Positive: Supple Chest Exam: Positive: Normal air movement, Rhonchi Heart Exam: Positive: Rate Normal, Regular Rhythm, Normal S1, Normal S2 Telemetry: Positive: No significant arrhythmia Abdomen Exam: Positive: Normal bowel sounds, Soft Male Exam: Positive: Normal Genital Exam Extremity Exam: Positive: Normal pulses Skin Exam: Positive: Nl turgor and temperature Neuro Exam: Positive: Normal Gait, Normal Speech, Cranial Nerves 3-12 NL Psych Exam: Positive: Mood NL, Oriented x 3 Assessment /Plan Problems (1) Acute respiratory failure with hypoxemia Status: Resolved (2) CHF (congestive heart failure) Status: Resolved (3) S/P BKA (below knee amputation) Status: Chronic Plan/VTE VTE Prophylaxis Ordered?: Yes Plan 1. Acute Hypoxic Respiratory Failure- resolved Continue supplemental oxugen as needed Continue Omnicef and Doxy Continue CPAP at night Restart Lasix as per home dosage 2. IDDM Resume home dose insulin. consistent carbohydrate diet. ISS. Restart Glucophage as per home orders 3. HTN Resume home med. 4. 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 pain control. resume home meds. gabapentin, baclofen, tylenol. CPAP at night. 6. PVD c/w Xarelto. s/p R. BKA 7. paroxysmal Afib No previous documented hx, possibly new onset. rate controlled on BB. Already on Xarelto. DVT ppx: On Xarelto Code status: Full code VS, I&O, 24H, Fishbone Vital Signs/I&O Vital Signs Date Time Temp Pulse Resp B/P (MAP) Pulse Ox O2 Delivery O2 Flow Rate FiO2 07/02/20 08:07 76 134/72 07/02/20 06:00 98.7 18 97 Nasal Cannula 1.0 06/28/20 02:30 100 I&O- Last 24 Hours up to 6 AM 07/02/20 06:00 Intake Total 1090 ml Output Total 1325 ml Balance -235 ml Laboratory Data 24H LABS Laboratory Tests 2 07/02/20 07:00: Immature Granulocyte % (Auto) 0.3, Neutrophils (%) (Auto) 71.0H, Lymphocytes (%) (Auto) 16.2L, Monocytes (%) (Auto) 8.3H, Eosinophils (%) (Auto) 3.9H, Basophils (%) (Auto) 0.3, Neutrophils # (Auto) 5.4, Lymphocytes # (Auto) 1.2L, Monocytes # (Auto) 0.6, Eosinophils # (Auto) 0.3, Basophils # (Auto) 0.0, Nucleated Red Blood Cells % (auto) 0.0, Anion Gap 5L, Glomerular Filtration Rate 46.5, Calcium Level 8.5L, Magnesium Level 1.8 CBC/BMP Laboratory Tests 07/02/20 07:00 Microbiology Microbiology 06/28/20 Respiratory Virus Panel (PCR) ([facility]) - Final, Complete 06/28/20 Blood Culture - Preliminary, Resulted No Growth after 72 hours. All specime... 06/28/20 Blood Culture - Preliminary, Resulted No Growth after 72 hours. All specime... MARIA GUADALUPE FLOR MD Jul 02, 2020 13:13
[2020-07-02 14:00] VITALS: BP 126/70
[2020-07-02] MEDS: FUROSEMIDE 40 MG TAB PO SCH (14:50)
[2020-07-02] MEDS ORDERED: metFORMIN XR 750 MG TAB PO SCH (21:00)
[2020-07-02] MEDS: LEVEMIR (INSULIN DETEMIR) 1 UNITS/0.01ML SC SCH (21:51)
[2020-07-02 22:00] VITALS: BP 128/85
[2020-07-03 06:00] VITALS: BP 140/76
[2020-07-03] MEDS: SLF 3 ML SYR IV SCH (06:00)
[2020-07-03 06:47] LABS: CALCIUM LEVEL 8.9 MG/DL (8.8-10.2); CREATININE FOR GFR 1.67 MG/DL (0.70-1.30); GLOMERULAR FILTRATION RATE 43.3 (>42); POTASSIUM SERUM 3.9 MEQ/L (3.5-5.1)
[2020-07-03] MEDS: HumaLOG INSULIN (NovoLOG) PER UNIT SC SCH (07:30)
[2020-07-03] MEDS: metFORMIN XR 750 MG TAB PO SCH (08:10)
[2020-07-03] MEDS: PANTOPRAZOLE 40MG TAB (PROTONIX) PO SCH (08:10)
[2020-07-03] MEDS: GABAPENTIN 300 MG CAP PO SCH (08:10)
[2020-07-03] MEDS: CEFDINIR 300 MG CAP (OMNICEF) PO SCH (08:11)
[2020-07-03] MEDS: amLODIPine 10 MG TAB PO SCH (08:11)
[2020-07-03] MEDS: hydroCHLOROthiazide 25 MG TAB PO SCH (08:11)
[2020-07-03 08:12] VITALS: BP 127/78
[2020-07-03] MEDS: METOPROLOL TART 12.5 MG PER 1/2 TAB PO SCH (08:12)
[2020-07-03] MEDS: DOXYCYCLINE HYCLATE 100MG TABLET PO SCH (08:12)
[2020-07-03] MEDS: RIVAROXABAN 20 MG TAB (XARELTO) PO SCH (08:12)
[2020-07-03] MEDS: CitaloPRAM (CeleXA) 20 MG TAB PO SCH (08:12)
[2020-07-03] MEDS: ROSUVASTATIN 10 MG TAB (CRESTOR) PO SCH (08:12)
[2020-07-03] MEDS: FUROSEMIDE 40 MG TAB PO SCH (08:12)
[2020-07-03] MEDS: FLUTICASONE PROP 0.05% NASAL SPRAY 16 GM (FLONASE) SCH (08:13)
--- NOTE | 2020-07-03 13:06 | DS.PDOC ---
Discharge Summary General Date of Admission Jun 28, 2020 at 03:40 Date of Discharge 07/03/20 Discharge Summary PROCEDURES PERFORMED DURING STAY: [None]. ADMITTING DIAGNOSES: 1. [CHF]. DISCHARGE DIAGNOSES: 1. [CHF,IDDM,HTN,HLD,CARLOS,PVD]. COMPLICATIONS/CHIEF COMPLAINT: CHF. 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 He reports sudden onset of SOB, he does get like this from time to time and attributes it to his hemidaphragmatic paralysis. He states that he feels completely well prior to the episode tonight. He was initially noted to drop to 70s saturation on arrival, didn't respond well or nasal cannula or high low and was placed on table top bipap. His saturation is currently mid 90s and feels well. He reports feeling much better and denies any complaint at this time including any chest discomfort, SOB, fever or chills. He does report LLE edema, unsure if its worse than normal but there is a dressing on likely due to blister rupture. CT scan angio does not show any evidence of thromboembolism. Minimal pleural effusion noted, b/l pulmonary infiltrates vs. interstitial congestion.]. HOSPITAL COURSE: [ 1. Acute Hypoxic Respiratory Failure- resolved Continue supplemental oxugen as needed Continue Omnicef and Doxy Continue CPAP at night Restart Lasix as per home dosage 2. IDDM Resume home dose insulin. consistent carbohydrate diet. ISS. Restart Glucophage as per home orders 3. HTN Resume home med. 4. 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 pain control. resume home meds. gabapentin, baclofen, tylenol. CPAP at night. 6. PVD c/w Xarelto. s/p R. BKA 7. paroxysmal Afib No previous documented hx, possibly new onset. rate controlled on BB. Already on Xarelto. ]. DISCHARGE MEDICATIONS: Please see below. ALLERGIES: Please see below. PHYSICAL EXAMINATION ON DISCHARGE: VITAL SIGNS: Please see below. GENERAL: [WNL] HEENT: [MARK ANTHONY/EOMI] NECK: [Supple] CARDIOVASCULAR EXAMINATION: [S1 S2 reg] RESPIRATORY EXAMINATION: [Clear to A&P] ABDOMINAL EXAMINATION: [Benign] EXTREMITIES: [no CCE] SKIN: [WNL] NEUROLOGICAL EXAMINATION: [No focal motor/sensory deficit] PSYCHIATRIC EXAMINATION: [NL] LABORATORY DATA: Please see below. IMAGING: [CTA Chest: IMPRESSION: 1. Minimal left pleural effusion with mild scattered bilateral pulmonary infiltrates with interstitial coarsening and minimal scattered atelectasis and some consolidation in the left lower lobe consistent with pneumonia which is new since 07/18/2019. Pulmonary edema is not excluded. 2. Status post cholecystectomy. 3. Borderline mediastinal nodes which are nonspecific. 4. Otherwise negative CTA chest. No pulmonary embolism is identified. ] PROGNOSIS: [good] ACTIVITY: [As tolerated]. DIET: [as tolerated] DISCHARGE PLAN: [home] DISPOSITION: 01 Home, Self-Care. DISCHARGE INSTRUCTIONS: 1. . ITEMS TO FOLLOWUP ON ON OUTPATIENT: 1. . DISCHARGE CONDITION: [Stable]. TIME SPENT ON DISCHARGE: 36 minutes. Vital Signs/I&Os Vital Signs Date Time Temp Pulse Resp B/P (MAP) Pulse Ox O2 Delivery O2 Flow Rate FiO2 07/03/20 08:12 93 127/78 07/03/20 06:45 1.0 07/03/20 06:00 98.5 18 96 Nasal Cannula 06/28/20 02:30 100 I&O- Last 24 Hours up to 6 AM 07/03/20 06:00 Intake Total 1376 ml Output Total 1530 ml Balance -154 ml Laboratory Data Labs 24H Laboratory Tests 2 07/02/20 14:58: Lab Scanned Report Miscellaneous Lab 07/03/20 05:50: Anion Gap 2L, Glomerular Filtration Rate 43.3, Calcium Level 8.9 CBC/BMP Laboratory Tests 07/03/20 05:50 Microbiology Microbiology 06/28/20 Respiratory Virus Panel (PCR) ([facility]) - Final, Complete 06/28/20 Blood Culture - Final, Complete NO GROWTH AFTER 5 DAYS 06/28/20 Blood Culture - Final, Complete NO GROWTH AFTER 5 DAYS Discharge Medications Scheduled Amlodipine Besylate (Amlodipine Besylate) 10 Mg Tablet, 10 MG PO DAILY, (Reported) Aspirin (Aspirin EC) 81 Mg Tablet.dr, 81 MG PO DAILY, (Reported) Citalopram Hydrobromide (Celexa) 20 Mg Tablet, 20 MG PO DAILY, (Reported) Esomeprazole Magnesium (Nexium) 40 Mg Cap, 40 MG PO DAILY, (Reported) Furosemide (Furosemide) 40 Mg Tablet, 40 MG PO DAILY, (Reported) Gabapentin (Gabapentin) 300 Mg Capsule, 900 MG PO QHS, (Reported) Gabapentin (Gabapentin) 300 Mg Capsule, 600 MG PO DAILY, (Reported) Glimepiride (Glimepiride) 4 Mg Tablet, 4 MG PO DAILY, (Reported) Hydrochlorothiazide (Hydrochlorothiazide) 12.5 Mg Tablet, 12.5 MG PO DAILY, (Reported) Insulin Glargine (Lantus) 100 Unit/1 Ml Vial, 35 UNITS SC QHS, (Reported) Liraglutide (Victoza 2-[place]) 18 Mg/3 Ml Inj, 1.8 MG SC DAILY, (Reported) Losartan Potassium (Losartan Potassium) 100 Mg Tablet, 100 MG PO DAILY, (Reported) Metformin HCl (Metformin HCl ER) 750 Mg Tab.er.24h, 1,500 MG PO QAM, (Reported) Metformin HCl (Metformin HCl ER) 750 Mg Tab.er.24h, 750 MG PO QHS, (Reported) Mometasone Furoate Monohydrate (Nasonex) 120 [place]/17 Gm Naspr, 2 SPRAY NA DAILY, (Reported) Rivaroxaban (Xarelto) 20 Mg Tablet, 20 MG PO DAILY, (Reported) Rosuvastatin Calcium (Rosuvastatin Calcium) 10 Mg Tablet, 10 MG PO DAILY, (Reported) Scheduled PRN Acetaminophen (Acetaminophen) 500 Mg Tablet, 1,000 MG PO Q8H PRN for PAIN / FEVER, (Reported) Baclofen (Baclofen) 10 Mg Tablet, 10 MG PO TID PRN for MUSCLE SPASMS, (Reported) Allergies Coded Allergies: Penicillins (Verified Allergy, Unknown, 03/28/20) TAPE (Verified Allergy, Unknown, PLASTIC TAPE, 03/28/20) MARIA GUADALUPE FLOR MD Jul 03, 2020 13:06
--- NOTE | 2020-07-18 12:33 | ECGEPIP ---
[facility] - ED Test Date: 2020-06-28 Pat Name: SHANA PAREDES Department: Room: [place] [address] Gender: Male Drainman: charlene : 1950 Requested By: CHELSIE Hammond Order Number: [id number] Reading MD: Zainab Foster Measurements Intervals [place] Rate: 106 P: GA: 0 QRS: -50 QRSD: 93 T: 60 QT: 332 QTc: 441 Interpretive Statements ATRIAL FIBRILLATION WITH RAPID VENTRICULAR RESPONSE LOW QRS VOLTAGE PATTERN CONSISTENT WITH PULMONARY DISEASE INCOMPLETE RIGHT BUNDLE BRANCH BLOCK INFERIOR MYOCARDIAL INFARCTION, PROBABLY OLD ABNORMAL ECG SEE SCANNED DOWNTIME REPORT
--- NOTE | 2020-07-31 09:04 | REP ---
PORTABLE CHEST X-RAY: SINGLE AP VIEW WITH THE PATIENT SEMI-UPRIGHT Delay in reporting results from hospital computer system malfunction from malware / ransomware. COMPARISON: 03/22/18 FINDINGS: There is an incomplete inspiratory effort. The lung bases are under-aerated. The mid and upper lung zones are clear. The cardiac size is normal for portable positioning. There is a stabilization plate in the cervical spine, unchanged. IMPRESSION: Incomplete inspiration with under-aeration of the lung bases. MTDD
--- NOTE | 2020-07-31 09:05 | REP ---
CHEST X-RAY: 2-VIEWS HISTORY: Shortness of breath. COMPARISON: Chest x-ray 06/28/2020. FINDINGS: There is hazy opacity at the right base suggesting a small quantity of right pleural fluid. There is discoid atelectasis in the right base. Increased alveolar density is seen in the left lung diffusely. Heart is not enlarged. No new infiltrate on the right. IMPRESSION: Discoid atelectasis right base. Slight blunting right lateral pleural angle. Hazy opacity diffusely left lung, question diffuse alveolar infiltrate versus edema. MTDD
--- NOTE | 2020-08-16 16:10 | ECHO ---
DATE OF PROCEDURE: 06/28/2020 Age: Gender: Male Height: Weight: REFERRING PHYSICIAN: Dr. Sharma INDICATION: Dyspnea unspecified. MEASUREMENTS: 2D measurements Septum 1.32 cm Posterior wall 1.19 cm Left ventricle diastole 4.6 cm Left atrium 3.7 cm Inferior vena cava 2.4 cm DOPPLER MEASUREMENTS: No aortic stenosis. No aortic regurgitation. No mitral stenosis. No mitral regurgitation. Mild tricuspid regurgitation. No pulmonic regurgitation. Aortic valve velocity 109 cm/s LVOT velocity 98.6 cm/s LVOT VTI 19.7 cm Estimated right ventricle systolic pressure 55 mmHg Estimated right atrial pressure of 10 mmHg DESCRIPTION: Rhythm was atrial fibrillation with controlled ventricular response. This is a moderately technically difficult echocardiogram. This is a 2D, M-mode, color flow Doppler and pulse wave Doppler examination, including mitral annular tissue Doppler. CONCLUSIONS: 1. This is suggestive of moderate elevation of estimated right ventricular systolic pressure (55 mmHg). Mild tricuspid regurgitation. Normal right ventricle size and systolic function. 2. Mild concentric left ventricular hypertrophy. Normal regional LV wall motion and wall thickening. Normal LV systolic functioning. Left ventricular ejection fraction (LVEF) 65% by visual estimate. Unable to determine LV diastolic function in the setting of atrial fibrillation. 3. Moderate focal thickening and focal calcific deposits of 3-cusp aortic valve. No aortic stenosis or regurgitation. 4. No pericardial effusion. 5. Moderately technically difficult echocardiogram. MTDD
== END 2020-07-03 11:24 | disposition home or self-care (01) | DRG 291 ==
LOC: M ED 01:00 → M ED INP 03:40 → M PCU 04:43 → M ICU 22:19 → M MS5PR 07-01 15:15
PROVIDERS: ADMIT Student in an Organized Health Care Education/Training Program; ATTEND Internal Medicine
DX: I11.0 Hypertensive heart disease with heart failure (principal); J96.01 Acute respiratory failure with hypoxia; E11.51 Type 2 diabetes mellitus with diabetic peripheral angiopathy without gangrene; G25.81 Restless legs syndrome; I48.0 Paroxysmal atrial fibrillation; Z79.82 Long term (current) use of aspirin; Z79.899 Other long term (current) drug therapy; Z88.0 Allergy status to penicillin; Z89.511 Acquired absence of right leg below knee; G47.33 Obstructive sleep apnea (adult) (pediatric); J98.6 Disorders of diaphragm; I50.9 Heart failure, unspecified

== ENCOUNTER → 2020-07-10 | Outpatient (CLI) | payer MEDICARE, OTHER ==
[~2020-07-10] MED LIST changes: +ROSU10TA6 PO
--- NOTE | 2020-08-06 08:06 | REPPI ---
CHEST X-RAY CLINICAL: Evaluate congestive heart failure (CHF). Dyspnea. TECHNIQUE: PA and lateral. COMPARISON: 06/30/2020. FINDINGS: Mediastinum and cardiac silhouette are stable with mild cardiomegaly again suggested. Subtle atelectasis and small pleural reaction at the right base is again suggested. No further consolidation, significant effusion, or pneumothorax identified. Skeletal structures are intact and stable. IMPRESSION: Subtle right basilar atelectasis and small pleural reaction again suggested. MTDD
== END ==
LOC: M PLAIMG 08:47
PROVIDERS: ATTEND Internal Medicine
DX: I51.7 Cardiomegaly (principal); J98.11 Atelectasis; I50.30 Unspecified diastolic (congestive) heart failure

== ENCOUNTER → 2020-08-12 | Outpatient (REF) | payer MEDICARE, OTHER ==
[2020-08-12 18:11] LABS: HEMOGLOBIN A1c 7.5 %
[2020-08-12 18:23] LABS: ALBUMIN 3.5 GM/DL (3.2-5.2); BILIRUBIN,TOTAL 1.2 MG/DL (0.2-1.0); CALCIUM LEVEL 9.3 MG/DL (8.8-10.2); CREATININE FOR GFR 1.79 MG/DL (0.70-1.30); GLOMERULAR FILTRATION RATE 39.9 (>42); MAGNESIUM LEVEL 1.8 MG/DL (1.8-2.4); POTASSIUM SERUM 4.3 MEQ/L (3.5-5.1); PTH INTACT 199.9 PG/ML (18.5-88.0); TOTAL PROTEIN 7.4 GM/DL (6.4-8.2)
[2020-08-12 18:39] LABS: CREATININE, URINE 93.7 MG/DL; MAU/CREAT RATIO 1440.7 MCG/MG (0.0-30.0)
== END ==
LOC: M SFHCPLAZ 15:44
PROVIDERS: ATTEND Internal Medicine
DX: I12.9 Hypertensive chronic kidney disease with stage 1 through stage 4 chronic kidney disease, or unspecified chronic kidney disease (principal); E11.9 Type 2 diabetes mellitus without complications; N18.30 Chronic kidney disease, stage 3 unspecified; Z23 Encounter for immunization
CPT/HCPCS: 36415; 80053; 82043; 83036; 83735; 83970; 90682; G0008; G0463